=== PATIENT | female | born 1950 | race Caucasian/White ===

== ENCOUNTER 2025-01-21 08:54 | Observation (INO) ==
--- NOTE | 2025-01-04 10:06 | PAT Medication Instructions ---
Medication Instructions Date of Service January 04, 2025 Home Medications L.acidophilus-B.animalis-B.bifidum 25 billion cell-FOS 100 mg capsule (Probiotic Complex) 1 cap PO QAM aspirin 81 mg tablet,delayed release 81 mg PO QAM diwazeh-vveevvpfu-zrnv 333 mg-133 mg-5 mg tablet 1 tab PO DAILY chlorthalidone 50 mg tablet 50 mg PO QAM cholecalciferol (vitamin D3) 125 mcg (5,000 unit) tablet (Vitamin D3) 125 mcg PO DAILY cyanocobalamin (vitamin B-12) 5,000 mcg capsule 10,000 mcg PO DAILY ferrous sulfate 325 mg (65 mg iron) tablet 325 mg PO QAM folic acid 800 mcg tablet 0.8 mg PO DAILY levothyroxine 88 mcg tablet 88 mcg PO QAM lisinopril 10 mg tablet 10 mg PO QAM methotrexate sodium 2.5 mg tablet 10 mg PO UD omega 3-xxu-jvq-fish oil 900 mg-1,400 mg capsule,delayed release 1 cap PO UD potassium chloride 8 mEq tablet,extended release 8 meq PO QAM STOP 7 days before surgery methotrexate sodium 2.5 mg tablet 10 mg PO UD ASK your prescriber and surgeon aspirin 81 mg tablet,delayed release 81 mg PO QAM STOP taking 2 weeks before surgery (or as soon as possible if surgery is within 2 weeks) omega 9-ahh-huu-fish oil 900 mg-1,400 mg capsule,delayed release 1 cap PO UD DO NOT take the morning of surgery L.acidophilus-B.animalis-B.bifidum 25 billion cell-FOS 100 mg capsule (Probiotic Complex) 1 cap PO QAM jrykjke-tjhgarpjy-zmvs 333 mg-133 mg-5 mg tablet 1 tab PO DAILY chlorthalidone 50 mg tablet 50 mg PO QAM cholecalciferol (vitamin D3) 125 mcg (5,000 unit) tablet (Vitamin D3) 125 mcg PO DAILY cyanocobalamin (vitamin B-12) 5,000 mcg capsule 10,000 mcg PO DAILY ferrous sulfate 325 mg (65 mg iron) tablet 325 mg PO QAM folic acid 800 mcg tablet 0.8 mg PO DAILY lisinopril 10 mg tablet 10 mg PO QAM potassium chloride 8 mEq tablet,extended release 8 meq PO QAM Take morning of surgery With a small sip of water, OTHERWISE NOTHING TO EAT OR DRINK AFTER MIDNIGHT: levothyroxine 88 mcg tablet 88 mcg PO QAM Other Notes If you have any questions please call us at [phone] or [phone] or [phone] or [phone]
--- NOTE | 2025-01-08 13:16 | Anesthesiology Consultation ---
Date of Service January 08, 2025 Assessment & Plan (1) Encounter for pre-operative examination: - awaiting surgeon ordered medical clearance, [facility], Markos TREVIÑO 01/13. Chart Review Chart Review: Pending: Refer to Additional Notes / Consult section and Patient seen in Pre Admission Testing Teaching & Discussion Pre-Anesthesia Teaching/Discussion Notes: Instructed NPO after midnight before surgery, except medications with 15 cc of water. Medication instructions provided according to the PAT guidelines. History Surgery Operation Date: 01/21/25 07:45 Proposed Procedures p L3-S1 Decompression and Fusion - Yash Lennon, Height/Weight Height: 5 ft 3.5 in Weight: 86.3 kg Allergies Allergy/AdvReac Type Severity Reaction Status Date / Time No Known Allergies Allergy Verified 01/04/25 09:30 Medications Home Medications Medication Instructions Recorded Confirmed Last Taken L.acidophilus-B.animalis-B.bifidum 1 cap PO QAM 01/04/25 01/04/25 Unknown 25 billion cell-FOS 100 mg capsule (Probiotic Complex) aspirin 81 mg tablet,delayed 81 mg PO QAM 01/04/25 01/04/25 Unknown release kbumhzl-bwnreyrgu-gsko 333 mg-133 1 tab PO DAILY 01/04/25 01/04/25 Unknown mg-5 mg tablet chlorthalidone 50 mg tablet 50 mg PO QAM 01/04/25 01/04/25 Unknown cholecalciferol (vitamin D3) 125 125 mcg PO DAILY 01/04/25 01/04/25 Unknown mcg (5,000 unit) tablet (Vitamin D3) cyanocobalamin (vitamin B-12) 10,000 mcg PO DAILY 01/04/25 01/04/25 Unknown 5,000 mcg capsule ferrous sulfate 325 mg (65 mg 325 mg PO QAM 01/04/25 01/04/25 Unknown iron) tablet folic acid 800 mcg tablet 0.8 mg PO DAILY 01/04/25 01/04/25 Unknown levothyroxine 88 mcg tablet 88 mcg PO QAM 01/04/25 01/04/25 Unknown lisinopril 10 mg tablet 10 mg PO QAM 01/04/25 01/04/25 Unknown methotrexate sodium 2.5 mg tablet 10 mg PO UD 01/04/25 01/04/25 Unknown omega 4-vrl-mfo-fish oil 900 1 cap PO UD 01/04/25 01/04/25 Unknown mg-1,400 mg capsule,delayed release potassium chloride 8 mEq 8 meq PO QAM 01/04/25 01/04/25 Unknown tablet,extended release Past Medical History Medical History (Updated 01/08/25 @ 13:16 by Ayleen Crook PA-C) History of COVID-19 (~2020) ER evaluation (denies hospitalization)-symptoms resolved Hyperlipidemia Hypertension controlled, stable per pt Hypothyroidism Rheumatoid arthritis Taking MTX Patient denies h/o stroke, seizures, heart attack, heart failure, DM, blood clots/DVTs or blood transfusions. Exercise / Class Metabolic Activity III < 4 Walking/Shop/Light housework (ambulates with cane, denies chest discomfort or shortness of breath with usual activities) Past Family History Family History Mother Cancer unknown type Past Surgical History Surgical History History of anesthesia reaction Awareness during knee replacement and "talked to anesthesiologist" History of bilateral tubal ligation History of tooth extraction History of total knee replacement Left Hx of external ear surgery Right, cancer area removed Past Anesthesia History No Family Hx of Anesthesia Complications and Other (awareness with knee replacement) History of PONV No Hx of PONV and No Hx of Motion Sickness Social History Smoking Status: Never smoker Do You Dip or Chew Tobacco: No Hx Alcohol Use: Yes Alcohol type: wine alcohol intake frequency: holidays/special occasions only Hx Substance Use: No substance use type: does not use Review of Systems Patient denies chest pain, shortness of breath, dyspnea on exertion, snoring, witnessed apneas, reflux, fever, chills, cough, wheezing, or palpitations. Physical Exam Vital Signs Vitals BP 132/78 P 77 TEMP 98.2 SP02 97% on RA RESP 18 Physical Patient resting comfortably in chair in no acute distress, alert and oriented, responding appropriately throughout visit Full cervical extension range of motion without pain TMD 3.5 finger breadths Mallampati Score 2 Dentition: edentulous, full upper and lower dentures Lungs: normal respiratory effort. Good air movement, clear throughout to auscultation, no adventitious breath sounds Cardiac: regular rate and rhythm, no murmurs noted Carotid arteries: negative bruit bilat Lab Results Anesthesia Preop Results Results Anesthesia Widget: WBC 9.99 K/ul (4.8-10.8) 01/08/25 Hgb 13.3 g/dl (12.0-16.0) 01/08/25 Hct 38.2 % (37.0-47.0) 01/08/25 Plt 246 K/uL (130-400) 01/08/25 Na 136 mmol/L (136-145) 01/08/25 K 3.8 mmol/L (3.5-5.1) 01/08/25 Cl 101 mmol/L (98-107) 01/08/25 CO2 28 mmol/L (21-32) 01/08/25 BUN 21 mg/dl (6-23) 01/08/25 Creat 1.29 mg/dl (0.6-1.2) H 01/08/25 Glucose Level 94 mg/dl (70-99(Fasting)) 01/08/25 PT 11.3 Seconds (9.0-12.0) 01/08/25 PTT 29 Seconds (21-31) 01/08/25 INR 1.0 (0.9-1.1) 01/08/25 Blood Type O Positive 01/08/25 Antibody Screen NEGATIVE 01/08/25 Testing Electrocardiogram Date: 01/08/25 NSR, rate 74 bpm Nonspecific T wave abnormality Chest X-Ray Date: 01/08/25 No active cardiopulmonary disease. Cervical Spine Date: 01/08/25 1. Straightening of the cervical spine likely due to muscle spasm. 2. Moderate cervical spondylosis. 3. No evidence of fracture or dislocation.
[2025-01-21] MEDS: CeleBREX 200 MG CAP PO SCH (09:27)
[2025-01-21] MEDS: ACETAMINOPHEN 500 MG TAB PO SCH (09:27)
[2025-01-21] MEDS: LR 15ML/HR IV SCH (09:27)
[2025-01-21] MEDS: LR 60ML/HR IV SCH (09:28)
[2025-01-21] MEDS: GABAPENTIN 300 MG CAP PO SCH (09:28)
[2025-01-21] MEDS ORDERED: LIDOCAINE 2% 2 ML VIAL/AMP(20MG/ML) INFIL ONE (10:36)
[2025-01-21] MEDS ORDERED: NEOSTIGMINE METHYLSULFATE 1 MG/ML 10ML VIAL ONE (10:36)
[2025-01-21] MEDS ORDERED: DEXAMETHASONE SOD INJ 4 MG/ML VIAL ONE (10:36)
[2025-01-21] MEDS ORDERED: PROPOFOL IV EMULSION 10 MG/ML 20 ML VIAL IV ONE (10:36)
[2025-01-21] MEDS ORDERED: GLYCOPYRROLATE 0.2 MG/ML VIAL ONE (10:36)
[2025-01-21] MEDS ORDERED: ROCURONIUM BROMIDE 10 MG/ML 5 ML VIAL IV ONE (10:36)
[2025-01-21] MEDS ORDERED: ONDANSETRON INJ 2 MG/ML 2 ML VIAL ONE (10:36)
[2025-01-21] MEDS ORDERED: MIDAZOLAM HCL 1 MG/ML 2ML VIAL ONE (10:37)
[2025-01-21] MEDS ORDERED: HYDROmorphone INJ 1 MG/ML SYRINGE IV PRN (10:47)
[2025-01-21] MEDS ORDERED: ATROPINE SULFATE 0.1 MG/ML 10ML SYR IV PRN (10:47)
[2025-01-21] MEDS ORDERED: ONDANSETRON INJ 2 MG/ML 2 ML VIAL IV PRN (10:47)
[2025-01-21] MEDS ORDERED: PROMETHAZINE HCL 6.25 MG in SODIUM CHLORIDE 0.9% 50 ML IV PRN (10:47)
[2025-01-21] MEDS ORDERED: HYDROmorphone INJ 2 MG/ML SYR/VIAL ONE (11:24)
--- NOTE | 2025-01-21 11:39 | History & Physical Bridge Note ---
Date of Service January 21, 2025 History & Physical Bridge Note I have examined the patient, reviewed the History & Physical and in the interval since the performance of the History & Physical I have noted the following changes of clinical significance: no changes noted
--- NOTE | 2025-01-21 11:40 | History & Physical Report ---
Date of Service January 21, 2025 Assessment & Plan (1) Multilevel lumbosacral spondylosis with radiculopathy: Plan: Decompression and fusion L3-S1 History of Present Illness Chief Complaint: Back and bilateral leg pain Primary Care Provider: Vernon Hernandez MD This is a 74-year-old female presents chronic persistent back and leg pain after failing course of nonoperative care is here for surgical intervention. Allergies Allergy/AdvReac Type Severity Reaction Status Date / Time No Known Allergies Allergy Verified 01/04/25 09:30 Home Medications Medication Instructions Recorded Confirmed Type L.acidophilus-B.animalis-B.bifidum 1 cap PO QAM 01/04/25 01/21/25 History 25 billion cell-FOS 100 mg capsule (Probiotic Complex) aspirin 81 mg tablet,delayed 81 mg PO QAM 01/04/25 01/21/25 History release kngeffe-poaviqvcg-kicr 333 mg-133 1 tab PO DAILY 01/04/25 01/21/25 History mg-5 mg tablet chlorthalidone 50 mg tablet 50 mg PO QAM 01/04/25 01/21/25 History cholecalciferol (vitamin D3) 125 125 mcg PO DAILY 01/04/25 01/21/25 History mcg (5,000 unit) tablet (Vitamin D3) cyanocobalamin (vitamin B-12) 10,000 mcg PO DAILY 01/04/25 01/21/25 History 5,000 mcg capsule ferrous sulfate 325 mg (65 mg 325 mg PO QAM 01/04/25 01/21/25 History iron) tablet folic acid 800 mcg tablet 0.8 mg PO DAILY 01/04/25 01/21/25 History levothyroxine 88 mcg tablet 88 mcg PO QAM 01/04/25 01/21/25 History lisinopril 10 mg tablet 10 mg PO QAM 01/04/25 01/21/25 History methotrexate sodium 2.5 mg tablet 10 mg PO UD 01/04/25 01/21/25 History omega 9-smf-mnb-fish oil 900 1 cap PO UD 01/04/25 01/21/25 History mg-1,400 mg capsule,delayed release potassium chloride 8 mEq 8 meq PO QAM 01/04/25 01/21/25 History tablet,extended release Past Med/Surg History Problem List (Updated 01/21/25 @ 11:40 by Yash Lennon DO) Multilevel lumbosacral spondylosis with radiculopathy Encounter for pre-operative examination Medical History (Updated 01/21/25 @ 11:40 by Yash Lennon DO) Rheumatoid arthritis Taking MTX Hypothyroidism Hypertension controlled, stable per pt Hyperlipidemia History of COVID-19 (~2020) ER evaluation (denies hospitalization)-symptoms resolved Surgical History History of anesthesia reaction Awareness during knee replacement and "talked to anesthesiologist" History of bilateral tubal ligation History of total knee replacement Left History of tooth extraction Hx of external ear surgery Right, cancer area removed Family History Mother Cancer unknown type Social History Smoking Status: Never smoker Second Hand Exposure: No; Do You Dip or Chew Tobacco: No; Tobacco Cessation Education Requested by Patient: No Hx Alcohol Use: Yes Alcohol type: wine Hx Substance Use: No Preferred Language: Mongolian Communication Ability: Effective Rag Collector Required: No Beliefs That Will Affect Care: None Current Living Situation: Family Other Information That Helps Us Care for You: No Feels Safe at Home: Yes Safety Concerns: Feels Safe At This Time Assistive Devices: Cane, Denture - Upper, Denture - Lower and Glasses Physical Exam Physical Exam: Patient is alert and oriented Heart regular rhythm lungs clear Results & Data Results & Data Vital Signs (Past 12 Hours) Vital Signs Temp Pulse Resp BP Pulse Ox O2 Del Method 01/21/25 09:28 36.7 C 74 16 147/74 H 95 Room Air
[2025-01-21] MEDS: BUPIVACAINE/EPINEPHRINE 0.25% 1:200,000 30 ML VIAL ONE (12:30)
[2025-01-21] MEDS: SURGICEL ABSORB HEMOSTAT 2IN X 14IN TOP ONE (14:06)
[2025-01-21] MEDS: FLOSEAL HEMOSTATIC MATRIX 10ML TOP ONE (14:12)
--- NOTE | 2025-01-21 14:32 | Operative Report ---
Post Operative Report Pre & Post Diagnosis Operation Date: 01/21/25 10:25 Pre-Op Diagnosis: #1 multilevel lumbosacral spondylosis with radiculopathy #2 lumbar spondylolisthesis Post-Op Diagnosis: Same I identified the patient and participated in the time-out.: Yes Procedure Operation Date: 01/21/25 10:25 Actual Procedures #1 lumbar decompression bilateral medial facetectomies and foraminotomies L3-L4, L4-5 and L5-S1. #2 posterior spinal fusion L3-S1. #3 placed posterior segmental instrumentation L3-S1 using camber. #4 interbody fusion L4-L5 L5-S1. #5 placement Spira 11 x 26 mm at L4-L5 and 12 x 26 mm x 2 at L5-S1. #6 placement locally harvested morselized autograft posterior gutters. #7 placement of Proteus combined with Koros in the posterior lateral gutters and os design interbody space. #8 application of versa wrap of the exposed dura. Surgeon Yash Lennon, DO Utility Assembler Tasneem Eastman Estimated Blood Loss 650 Findings See Below The patient is 5 foot 3 weighing over 85 kg with a BMI in excess of 32. Patient's body mass did contribute to significant technical difficulty with positioning exposure and the procedure itself and at least 50% increased operative time. Specimens None Indications This is a 74-year-old female who presents by much diagnosis after failing course of nonoperative care she is here for surgical invention. Description of Procedure Patient is met with identified informed consent obtained. Patient was then ta liz to the operative suite underwent and patient placed in a prone position on the Brooks table on top of the Eric frame. All bony promises well-padded eyes inspected to ensure no external pressure placed upon them. This point lumbar spine was prepped and draped in sterile fashion. Sharp dissection with the assistance of Bovie cautery performed down to and exposing the lamina and transverse processes L3-L4-L5 and the sacral ala bilaterally. From caudal to cephalad fashion complete laminectomy of L5 L4 and L3 was performed including bilateral medial facetectomies and foraminotomies addressing severe neural compression at each level. Pedicle screws were then placed in L3-L4-L5 and S1 levels bilaterally with assistance of fluoroscopy and the purposes rods contoured and placed. By way of transfer and approach and a left a discectomy of L5-S1 was performed endplates corrected to subcortical bony bone and a 12 x 26 mm Spira cage tapped into position. Then proceeded to the right tra nsforaminal region at L5-S1. Again discectomy performed. Endplates guided to subcortical bleeding bone and a second 12 x 26 mm Spira cage tapped in position. Then proceeded L4-L5 by way transforaminal approach on the right a complete discectomy was performed. Endplates guided to subcortically bone and 11 x 26 mm spiral cage tapped into position. Please note all cages were packed with os design bone graft. Rods were then locked into position bilaterally. The transverse processes of L3 L4-5 and the sacral ala burred to subcortical bleeding bone. Proteus combined with Koros and local autograft placed in the posterolateral gutters. Versa wrap placed of exposed dura. 15 round SIRISHA drain inserted. The incision was then closed with 1 Vicryl the fascia 2-0 Vicryl subcutaneously and 4 Monocryl for final skin closure. Steri-Strips sterile dressing placed. Patient waken taken the PACU stable condition. Please note Tasneem Eastman was present at the entire procedure and on the patient positioning complex portion of the surgery and final skin closure. Im ordering 10 grams of Collagen Powder ([facility] A6010 Primary Dressing) and 10 bordered super absorbent ([facility] A6196 Secondary Dressing) to treat an incision wound that was caused by a spine procedure. The incision is approximately 2 cm(W) x 2 cm(L) down to the spinal column and epidural space 2 cm (D) in size and is a full thickness wound showing no signs of infection. Collagen comes in 1 gram packets so 10 packets were ordered. Given the size of the wound, with moderate exudate I chose to order a 10 day supply. The patient will be provided instructions for proper application of the collagen wound kit. The patient will be asked to apply the collagen powder daily and then cover it with sterile dressings dispensed. Collagen was selected as I expect the collagen to attract monocytes and fibroblasts, act as a sacrificial substrate for MMPs, and ultimately proved a matrix for tissue and vessel growth. The collagen will act as a primary dressing in this scenario. It is medically necessary for proper healing of these wounds to improve bioavailability and contact with each wound surface, this is also to help prevent infection of wounds and promote healing ultimately leading to a better healing outcome and limit the risk of infection. I attest to the content of the Intraoperative Record and any orders documented therein. Any exceptions are noted below.
[2025-01-21] MEDS: ceFAZolin 330 MG/ML 1 GM VIAL ONE (14:35)
--- NOTE | 2025-01-21 14:50 | Fluoroscopy Report ---
FL lumbar spine 2-3V CLINICAL HISTORY: L3-S1 D F COMPARISON STUDY: None FLUOROSCOPY TIME: 26 seconds FLUOROSCOPY IMAGES: 3 EXPOSURE DOSE: 22 mGy FINDINGS: Fluoroscopy was provided for lower lumbar metallic fusion. IMPRESSION: Intraoperative fluoroscopy. ACT 112: Negative or not required by law. Electronically signed by: Ajit Callejas M.D. 01/21/2025 2:49 PM
[2025-01-21] MEDS ORDERED: ACETAMINOPHEN 1,000 MG/100 ML VIAL IV PRN (16:02)
[2025-01-21] MEDS ORDERED: diphenhydrAMINE Capsule 25 MG CAP PO PRN (16:02)
[2025-01-21] MEDS ORDERED: DO NOT ADMINISTER FLU VACCINE PRN (16:02)
[2025-01-21] MEDS ORDERED: DO NOT ADMINISTER PNEUMOCOCCAL VACCINE PRN (16:02)
[2025-01-21] MEDS ORDERED: ALUMINUM/MAGNESIUM SUSP 30 ML UDC PO PRN (16:02)
[2025-01-21] MEDS ORDERED: FAMOTIDINE 20 MG TAB PO PRN (16:02)
[2025-01-21] MEDS ORDERED: SOD PHOSPHATE/SOD BIPHOSPHATE ENEMA 132 ML BTL PR PRN (16:02)
[2025-01-21] MEDS ORDERED: NALOXONE HCL 0.4 MG/1 ML VIAL/CARP IV PRN (16:02)
[2025-01-21] MEDS ORDERED: LORazepam 0.5 MG TAB PO PRN (16:02)
[2025-01-21] MEDS ORDERED: ONDANSETRON 4 MG OD TAB PO PRN (16:02)
[2025-01-21] MEDS ORDERED: MAGNESIUM HYDROXIDE SUSP 30 ML UDC PO PRN (16:02)
[2025-01-21] MEDS ORDERED: PROMETHAZINE 12.5 MG/50.5 ML BAG IV PRN (16:02)
[2025-01-21] MEDS ORDERED: METOCLOPRAMIDE HCL INJ 5 MG/ML 2 ML VIAL IV PRN (16:02)
--- NOTE | 2025-01-21 16:32 | Anesthesiology Progress Note ---
Date of Service January 21, 2025 Anesthesia Post Procedure Vital Signs Vital Signs: Temp Pulse Pulse Resp BP Pulse Ox O2 Del Method 01/21/25 15:55 68 12 130/55 L 97 Nasal Cannula 01/21/25 15:40 76 17 135/62 97 Nasal Cannula 01/21/25 15:30 97.5 F L 69 14 131/59 L 97 Nasal Cannula 01/21/25 15:20 67 19 128/63 98 Nasal Cannula 01/21/25 15:10 69 12 124/63 98 Nasal Cannula 01/21/25 15:00 74 18 121/62 92 Nasal Cannula 01/21/25 14:50 69 14 110/64 95 Oxymask 01/21/25 14:40 97.5 F L 90 16 117/60 97 Oxymask 01/21/25 09:28 98.1 F 74 16 147/74 H 95 Room Air O2 Flow Rate 01/21/25 15:55 2 01/21/25 15:40 2 01/21/25 15:30 2 01/21/25 15:20 2 01/21/25 15:10 2 01/21/25 15:00 2 01/21/25 14:50 5 01/21/25 14:40 5 01/21/25 09:28 Pain Intensity Back: Pain Intensity: 4 Transfer of Care Handoff Completed per policy Notes Mental Status: alert / awake / arousable and participated in evaluation Patient Amnestic to Procedure: Yes Nausea / Vomiting: adequately controlled Pain: adequately controlled Airway Patency, RR, SpO2: stable & adequate BP & HR: stable & adequate Hydration State: stable & adequate Anesthetic Complications: no major complications apparent and Pt Satisfied with anesthetic care
--- NOTE | 2025-01-21 16:50 | Hospitalist Consultation ---
Date of Consultation January 21, 2025 Assessment & Plan (1) Multilevel lumbosacral spondylosis with radiculopathy: (2) S/P spinal surgery: Patient is a 74-year-old female with past medical history significant for rheumatoid arthritis, hypothyroidism, TONE, HTN and HLD who is being seen in consultation for routine postoperative medical management after undergoing elective L3-S1 decompression and fusion performed by Dr. Lennon earlier today after failing nonoperative care for treatment of multilevel lumbosacral spondylosis with radiculopathy. POD #0 s/p lumbar decompression bilateral medial facetectomies and foraminotomies L3-L4/L4-5/L5-S1, posterior spinal fusion L3-S1, placed posterior segmental instrumentation L3-S1 using camber, interbody fusion L4-L5/L5-S1, placement Spira 11 x 26 mm at L4-L5 and 12 x 26 mm x 2 at L5-S1, placement locally harvested morselized autograft posterior gutters, placement of Proteus combined with Koros in the posterior lateral gutters and os design interbody space and application of versa wrap of the exposed dura with Dr. Lennon EBL: 650cc & preop Hgb = 13.3 as of 01/08/25 Per primary service for pain control, wound care, anticoagulation and activities Continue incentive spirometry, PT/OT when appropriate as per primary service Monitor postop H/H for acute blood loss anemia and transfuse blood products PRN Continue Fe supplementation given h/o TONE Continue postop IV Ancef as per primary service (9 bags ordered) (3) Hypertension: Postop BP on softer side Will hold lisinopril and chlorthalidone for now --> resume as able, routine BP monitoring (4) Hyperlipidemia: Continue ASA (5) Hypothyroidism: Continue levothyroxine (6) Rheumatoid arthritis: Methotrexate placed on hold by primary service DVT Prophylaxis: As per primary service PCP: Vernon Hernandez MD [[facility]] Disposition: Routine DC planning as per primary service Patient seen in collaboration with Dr. Hutson. Please see addendum. I spent a total of 36 minutes coordinating, documenting, and providing care for this patient excluding time spent in the performance of separately billed services or time spent by another provider/QHP. This included personally reviewing all current laboratories and imaging studies, medical reconciliation, outpatient chart review and discussion with specialists. This chart was completed in part utilizing Speech Voice Recognition Software. Grammatical errors, random word insertions, pronoun errors, and incomplete sentences are an occasional consequence of this system due to software limitations, ambient noise, and hardware issues. Any formal questions or concerns about the content, text, or information contained within the body of this dictation should be directly addressed to the provider for clarification. Supervising Physician Co-Signing Physician Notes Attending addendum: The patient was seen and examined in medical floor in presence of the family members She is status post multilevel lumbosacral spondylosis with radiculopathy and is status post spinal surgery on 01/21/2025 She has been complaining of some back pain but radiate no radiation Denies any other significant symptoms On examination Lying in bed without any acute distress Remains hemodynamically stable with afebrile and requiring 2 L to maintain saturation Chestdecreased breath sounds bilaterally but no crackles and no wheezing HeartS1-S2, regular Abdomenbenign Extremitiesno edema Her labs prior to the surgery including CBC and PRP noted and a chest x-ray and EKG noted too She remains medically stable following spinal surgery as above Her other significant medical conditions remained stable and managed accordingly Will check her blood counts tomorrow Agree with assessment plan as outlined above by Jennie Miles PA-C and take the full responsibility of care in the hospita Dr Fabrizio Azar History of Present Illness Reason for Consultation: Routine postoperative medical management Requesting Physician: Yash Lennon DO Attending Physician: Yash Lennon DO History of Present Illness Patient is a 74-year-old female with past medical history significant for rheumatoid arthritis, hypothyroidism, TONE, HTN and HLD who is being seen in consultation for routine postoperative medical management after undergoing elective L3-S1 decompression and fusion performed by Dr. Lennon earlier today after failing nonoperative care for treatment of multilevel lumbosacral spondylosis with radiculopathy. History obtained from the patient and associated chart review. Endorses some mild back discomfort postoperatively but otherwise feeling well. Denies any SOB or chest pain. Tolerating sips of water without issue. Eager to eat later on. Denies any abdominal pain or N/V. Passing gas. Currently on 2L NC but slowly weaning off. Allergies Allergy/AdvReac Type Severity Reaction Status Date / Time No Known Allergies Allergy Verified 01/04/25 09:30 Home Medications Medication Instructions Recorded Confirmed Type L.acidophilus-B.animalis-B.bifidum 1 cap PO QAM 01/04/25 01/21/25 History 25 billion cell-FOS 100 mg capsule (Probiotic Complex) aspirin 81 mg tablet,delayed 81 mg PO QAM 01/04/25 01/21/25 History release wfodfcr-jkhdbhzmg-ulkf 333 mg-133 1 tab PO DAILY 01/04/25 01/21/25 History mg-5 mg tablet chlorthalidone 50 mg tablet 50 mg PO QAM 01/04/25 01/21/25 History cholecalciferol (vitamin D3) 125 125 mcg PO DAILY 01/04/25 01/21/25 History mcg (5,000 unit) tablet (Vitamin D3) cyanocobalamin (vitamin B-12) 10,000 mcg PO DAILY 01/04/25 01/21/25 History 5,000 mcg capsule ferrous sulfate 325 mg (65 mg 325 mg PO QAM 01/04/25 01/21/25 History iron) tablet folic acid 800 mcg tablet 0.8 mg PO DAILY 01/04/25 01/21/25 History levothyroxine 88 mcg tablet 88 mcg PO QAM 01/04/25 01/21/25 History lisinopril 10 mg tablet 10 mg PO QAM 01/04/25 01/21/25 History methotrexate sodium 2.5 mg tablet 10 mg PO UD 01/04/25 01/21/25 History omega 4-zsm-ree-fish oil 900 1 cap PO UD 01/04/25 01/21/25 History mg-1,400 mg capsule,delayed release potassium chloride 8 mEq 8 meq PO QAM 01/04/25 01/21/25 History tablet,extended release Patient History Medical History Rheumatoid arthritis Taking MTX Hypothyroidism Hypertension controlled, stable per pt Hyperlipidemia History of COVID-19 (~2020) ER evaluation (denies hospitalization)-symptoms resolved Surgical History History of anesthesia reaction Awareness during knee replacement and "talked to anesthesiologist" History of bilateral tubal ligation History of total knee replacement Left History of tooth extraction Hx of external ear surgery Right, cancer area removed Family History Mother Cancer unknown type Social History Smoking Status: Never smoker Second Hand Exposure: No; Do You Dip or Chew Tobacco: No; Tobacco Cessation Education Requested by Patient: No Hx Alcohol Use: Yes Alcohol type: wine Hx Substance Use: No Preferred Language: Khmer Communication Ability: Effective Pump House Technician Required: No Beliefs That Will Affect Care: None Current Living Situation: Family Other Information That Helps Us Care for You: No Feels Safe at Home: Yes Safety Concerns: Feels Safe At This Time Assistive Devices: Cane, Denture - Upper, Denture - Lower and Glasses Review of Systems Review of Systems: At least ten systems reviewed and negative, except as noted in the HPI. Physical Exam Physical Exam: General: WD/WN, NAD, laying down in bed, A&Ox3, pleasant, friend at bedside HEENT: Normocephalic, atraumatic, oropharynx normal Respiratory: Normal respiratory effort, CTAB, on 2L NC Cardiovascular: RRR, normal peripheral pulses, no BLE edema Abdomen/GI: Normal bowel sounds, soft, nontender to palpation in all quadrants Extremities/MSK: No cyanosis or clubbing, moves all extremities, surgical dressing on back with minimal seepage, SIRISHA drain x 1 with serosanguineous output Neurologic: No overt focal deficits, CN's II-XI not formally tested but appear grossly intact bilaterally Results & Data Results & Data Vital Signs (Past 12 Hours) Vital Signs Temp Pulse Pulse Resp BP Pulse Ox O2 Del Method 01/21/25 16:37 Room Air 01/21/25 16:32 36.5 C 70 16 120/62 97 Nasal Cannula 01/21/25 16:02 36.5 C 74 16 128/65 Nasal Cannula 01/21/25 15:55 68 12 130/55 L 97 Nasal Cannula 01/21/25 15:40 76 17 135/62 97 Nasal Cannula 01/21/25 15:30 36.4 C L 69 14 131/59 L 97 Nasal Cannula 01/21/25 15:20 67 19 128/63 98 Nasal Cannula 01/21/25 15:10 69 12 124/63 98 Nasal Cannula 01/21/25 15:00 74 18 121/62 92 Nasal Cannula 01/21/25 14:50 69 14 110/64 95 Oxymask 01/21/25 14:40 36.4 C L 90 16 117/60 97 Oxymask 01/21/25 09:28 36.7 C 74 16 147/74 H 95 Room Air O2 Flow Rate 01/21/25 16:37 2 01/21/25 16:32 2 01/21/25 16:02 2 01/21/25 15:55 2 01/21/25 15:40 2 01/21/25 15:30 2 01/21/25 15:20 2 01/21/25 15:10 2 01/21/25 15:00 2 01/21/25 14:50 5 01/21/25 14:40 5 01/21/25 09:28 Diagnostic Findings Chest X-Ray 01/08/25 07:58 CLINICAL HISTORY: Pre admission testing. COMPARISON: None. TECHNIQUE: XR CHEST PA/Lateral. FINDINGS: Lungs: Both lung drummond are clear with no evidence of nodules, infiltrates or mass noted. Diaphragms: Unremarkable. Pleura: No effusions or pneumothorax are identified. Heart: Heart size and its configuration appear to be within normal limits. Aorta: Unremarkable. Pulmonary arteries: Unremarkable. Hilum: Unremarkable. Osseous structures: Normal mineralization of the visualized bony structures. No acute bony pathology. IMPRESSION: 1. No active cardiopulmonary disease. Electronically signed by Noah Gerard 01-08-2025 2:41 PM Cervical Spine X-Ray 01/08/25 13:23 CLINICAL HISTORY: Pre admission testing. COMPARISON: None. FINDINGS: Alignment and Curvature: Straightening of the cervical spine is noted. Vertebral body heights: None. Intervertebral disc spaces: Reduced disc space is noted at C3-C4, C5-C6 and C6-C7 levels. Degenerative changes: Marginal osteophytes with endplate sclerosis is noted. Fracture: None. Mineralization of the cervical spine bony structures: Normal bone density is noted. Prevertebral and paraspinal soft tissues: Normal. Orthopedic hardware: None. IMPRESSION: 1. Straightening of the cervical spine likely due to muscle spasm. 2. Moderate cervical spondylosis. 3. No evidence of fracture or dislocation. Electronically signed by Noah Gerard 01-09-2025 05:53 AM Lumbar Spine X-Ray 01/21/25 10:25 FL lumbar spine 2-3V CLINICAL HISTORY: L3-S1 D F COMPARISON STUDY: None FLUOROSCOPY TIME: 26 seconds FLUOROSCOPY IMAGES: 3 EXPOSURE DOSE: 22 mGy FINDINGS: Fluoroscopy was provided for lower lumbar metallic fusion. IMPRESSION: Intraoperative fluoroscopy. ACT 112: Negative or not required by law. Electronically signed by: Ajit Callejas M.D. 01/21/2025 2:49 PM (3) Hypertension Hypertension type: unspecified Qualified Code(s): I10 - Essential (primary) hypertension (4) Hyperlipidemia Hyperlipidemia type: unspecified Qualified Code(s): E78.5 - Hyperlipidemia, unspecified (5) Hypothyroidism Hypothyroidism type: unspecified Qualified Code(s): E03.9 - Hypothyroidism, unspecified (6) Rheumatoid arthritis Rheumatoid arthritis location: unspecified site Rheumatoid factor presence: unspecified presence Qualified Code(s): M06.9 - Rheumatoid arthritis, unspecified
[2025-01-21] MEDS: COUGH DROP (SUGAR FREE) LOZ 24 LOZ/1 BOX BUCCAL PRN (16:54)
[2025-01-21] MEDS: ONDANSETRON INJ 2 MG/ML 2 ML VIAL IV PRN (17:44)
[2025-01-21] MEDS: ACETAMINOPHEN 500 MG TAB PO PRN (20:57)
[2025-01-21] MEDS: DOCUSATE SODIUM/SENNA 50/8.6MG TAB PO SCH (20:57)
[2025-01-22] MEDS: POLYETHYLENE (MIRALAX) 17 GM PACK PO SCH (06:09)
[2025-01-22] MEDS: LEVOTHYROXINE SODIUM 88 MCG TABLET PO SCH (06:10)
[2025-01-22] MEDS: FERROUS SULFATE 325 MG TAB PO SCH (07:41)
[2025-01-22] MEDS: FOLIC ACID 400 MCG TAB PO SCH (07:41)
[2025-01-22] MEDS: ASPIRIN 81 MG ECTAB PO SCH (07:41)
[2025-01-22] MEDS: ADVANCED PROBIOTIC 625 MG CAPSULE PO SCH (07:41)
[2025-01-22] MEDS: CYANOCOBALAMIN (B-12) 2,500 MCG TABLET PO SCH (07:42)
[2025-01-22] MEDS: dexAMETHasone 6 MG in SYRINGE 0 ML IV SCH (07:42)
[2025-01-22] MEDS: CHOLECALCIFEROL 125 MCG (5,000 UNITS) TAB PO SCH (07:42)
[2025-01-22] MEDS ORDERED: CHLORTHALIDONE 25 MG TAB PO SCH (09:00)
[2025-01-22] MEDS ORDERED: NON-FORMULARY MEDICATION (Calcium-Magnesium-Zinc 333-133-5 mg Tablet) PO SCH (09:00)
[2025-01-22] MEDS ORDERED: POTASSIUM CHLORIDE 10 MEQ TABCR PO SCH (09:00)
[2025-01-22 10:06] LABS: Hematocrit (blood only) 32.0 % (37.0-47.0); Hemoglobin 10.9 g/dl (12.0-16.0); Immature Granulocytes # (auto) 0.10 K/uL (0.01-0.20); Immature Granulocytes % (auto) 0.5 %; Mean Corpuscular Hemoglobin 32.6 pg (25.0-34.0); Mean Corpuscular Volume 95.8 fL (80.0-100.0); Platelet Count 230 K/uL (130-400); RDW Standard Deviation 43.5 fL (36.4-46.3); Red Blood Count 3.34 M/uL (4.20-5.40); White Blood Count 20.08 K/ul (4.8-10.8)
[2025-01-22 10:21] LABS: Anion Gap 8.0 (3-11); Blood Urea Nitrogen 19.0 mg/dl (6-23); Calcium 8.5 mg/dl (8.6-10.3); Carbon Dioxide 26.0 mmol/L (21-32); Chloride 95.0 mmol/L (98-107); Creatinine Clr Calc Pharmacy 39.5 ml/min; Glucose 148.0 mg/dl (70-99(Fasting)); Potassium 3.9 mmol/L (3.5-5.1); Sodium 129.0 mmol/L (136-145)
--- NOTE | 2025-01-22 11:05 | Orthopedic Progress Note ---
Date of Service January 22, 2025 Assessment & Plan (1) Multilevel lumbosacral spondylosis with radiculopathy: Plan: At this time we will continue physical therapy monitor her SIRISHA output anticipate discharge Saturday or Saturday. Admission and Anticipated Discharge Date Admission Date: January 21, 2025 Subjective Back pain controlled leg pain improved Physical Exam Physical Exam: Patient is up and ambulating the halls with physical therapy. She has excellent posture. She is comfortable. The strength testing. Results & Data Vital Signs (Past 12 Hours) Vital Signs Temp Pulse Pulse Resp BP Pulse Ox O2 Del Method 01/22/25 08:01 36.3 C L 84 18 140/73 97 Room Air 01/22/25 04:00 36.5 C 70 18 125/69 97 Room Air 01/22/25 00:03 36.5 C 65 18 114/66 98 Room Air Queries Orthopedic Spine Obesity: Yes
--- NOTE | 2025-01-22 11:41 | Hospitalist Progress Note ---
Date of Service January 22, 2025 Assessment & Plan (1) Multilevel lumbosacral spondylosis with radiculopathy: (2) S/P spinal surgery: Plan: Patient is a 74-year-old female with past medical history significant for rheumatoid arthritis, hypothyroidism, TONE, HTN and HLD who is being seen in consultation for routine postoperative medical management after undergoing elective L3-S1 decompression and fusion performed by Dr. Lennon earlier today after failing nonoperative care for treatment of multilevel lumbosacral spondylosis with radiculopathy. POD #1 s/p lumbar decompression bilateral medial facetectomies and foraminotomies L3-L4/L4-5/L5-S1, posterior spinal fusion L3-S1, placed posterior segmental instrumentation L3-S1 using camber, interbody fusion L4-L5/L5-S1, placement Spira 11 x 26 mm at L4-L5 and 12 x 26 mm x 2 at L5-S1, placement locally harvested morselized autograft posterior gutters, placement of Proteus combined with Koros in the posterior lateral gutters and os design interbody space and application of versa wrap of the exposed dura with Dr. Lennon Per ortho for pain control, wound care, anticoagulation and activities Continue IV Ancef until SIRISHA drain removed Continue incentive spirometry, PT/OT when appropriate Acute blood loss anemia Monitor H&H 10.9 (pre-op hgb 13.3, EBL 650ml) Asymptomatic, no transfusion indicated (3) Hypertension: Plan: Postop BP on softer side Will hold lisinopril and chlorthalidone for now -> resume as able (4) Leukocytosis: Plan: WBC 20K today (from 9.9K pre-op), in setting of steroids. No suspected infection. Monitor with daily CBC (5) Hyperlipidemia: Plan: Continue ASA (6) Hypothyroidism: Plan: Continue levothyroxine (7) Rheumatoid arthritis: Plan: Methotrexate placed on hold by primary service DVT Prophylaxis: As per primary service PCP: Vernon Hernandez MD [[facility]] Disposition: Routine DC planning as per primary service Care coordinated with Dr. Bailey Addison spent a total of 35 minutes coordinating, documenting, and providing care for this patient excluding time spent in the performance of separately billed services or time spent by another provider/QHP. This included personally reviewing all current laboratories and imaging studies, medical reconciliation, outpatient chart review and discussion with specialists. Admission and Anticipated Discharge Date Admission Date: January 21, 2025 Subjective Seen and examined with PT at bedside. No acute events overnight. Patient with minimal surgical site discomfort, no paresthesias or numbness of lower extremities. No chest pain or shortness of breath. No nausea or vomiting. + post op flatus Review of Systems Review of Systems: At least ten systems reviewed and negative except as noted in the HPI. Physical Exam Physical Exam: Gen: WD/WN, NAD, sitting at side of bed, A&Ox3 HEENT: Normocephalic, atraumatic, mucous membranes moist Lung: Clear to Auscultation bilaterally Heart: Regular rate, regular rhythm Abdomen: Soft, NT, ND +BS x 4 Extremities: Spinal dressing c/d/i, + SIRISHA visualized, no edema Skin: Warm, no rash Results & Data Results & Data Vital Signs (Past 12 Hours) Vital Signs Temp Pulse Pulse Resp BP Pulse Ox O2 Del Method 01/22/25 08:01 36.3 C L 84 18 140/73 97 Room Air 01/22/25 04:00 36.5 C 70 18 125/69 97 Room Air 01/22/25 00:03 36.5 C 65 18 114/66 98 Room Air Laboratory Results Short CBC 01/22/25 Range/Units 09:46 WBC 20.08 H (4.8-10.8) K/ul Hgb 10.9 L (12.0-16.0) g/dl Hct 32.0 L (37.0-47.0) % Plt Count 230 (130-400) K/uL BMP 01/22/25 09:46 Sodium 129 L Potassium 3.9 Chloride 95 L Carbon Dioxide 26 BUN 19 Creatinine 1.31 H Glucose 148 H Calcium 8.5 L Diagnostic Findings Chest X-Ray 01/08/25 07:58 CLINICAL HISTORY: Pre admission testing. COMPARISON: None. TECHNIQUE: XR CHEST PA/Lateral. FINDINGS: Lungs: Both lung drummond are clear with no evidence of nodules, infiltrates or mass noted. Diaphragms: Unremarkable. Pleura: No effusions or pneumothorax are identified. Heart: Heart size and its configuration appear to be within normal limits. Aorta: Unremarkable. Pulmonary arteries: Unremarkable. Hilum: Unremarkable. Osseous structures: Normal mineralization of the visualized bony structures. No acute bony pathology. IMPRESSION: 1. No active cardiopulmonary disease. Electronically signed by Noah Gerard 01-08-2025 2:41 PM Cervical Spine X-Ray 01/08/25 13:23 CLINICAL HISTORY: Pre admission testing. COMPARISON: None. FINDINGS: Alignment and Curvature: Straightening of the cervical spine is noted. Vertebral body heights: None. Intervertebral disc spaces: Reduced disc space is noted at C3-C4, C5-C6 and C6-C7 levels. Degenerative changes: Marginal osteophytes with endplate sclerosis is noted. Fracture: None. Mineralization of the cervical spine bony structures: Normal bone density is noted. Prevertebral and paraspinal soft tissues: Normal. Orthopedic hardware: None. IMPRESSION: 1. Straightening of the cervical spine likely due to muscle spasm. 2. Moderate cervical spondylosis. 3. No evidence of fracture or dislocation. Electronically signed by Noah Gerard 01-09-2025 05:53 AM Lumbar Spine X-Ray 01/21/25 10:25 FL lumbar spine 2-3V CLINICAL HISTORY: L3-S1 D F COMPARISON STUDY: None FLUOROSCOPY TIME: 26 seconds FLUOROSCOPY IMAGES: 3 EXPOSURE DOSE: 22 mGy FINDINGS: Fluoroscopy was provided for lower lumbar metallic fusion. IMPRESSION: Intraoperative fluoroscopy. ACT 112: Negative or not required by law. Electronically signed by: Ajit Callejas M.D. 01/21/2025 2:49 PM (3) Hypertension Hypertension type: unspecified Qualified Code(s): I10 - Essential (primary) hypertension (5) Hyperlipidemia Hyperlipidemia type: unspecified Qualified Code(s): E78.5 - Hyperlipidemia, unspecified (6) Hypothyroidism Hypothyroidism type: unspecified Qualified Code(s): E03.9 - Hypothyroidism, unspecified (7) Rheumatoid arthritis Rheumatoid arthritis location: unspecified site Rheumatoid factor presence: unspecified presence Qualified Code(s): M06.9 - Rheumatoid arthritis, unspecified
[2025-01-22 15:29] LABS: Anion Gap 8.0 (3-11); Blood Urea Nitrogen 21.0 mg/dl (6-23); Calcium 8.5 mg/dl (8.6-10.3); Carbon Dioxide 26.0 mmol/L (21-32); Chloride 92.0 mmol/L (98-107); Creatinine Clr Calc Pharmacy 34.5 ml/min; Glucose 193.0 mg/dl (70-99(Fasting)); Potassium 4.4 mmol/L (3.5-5.1); Sodium 126.0 mmol/L (136-145)
[2025-01-22] MEDS: SODIUM CHLORIDE 0.9% 1,000 ML IV SCH (16:48)
[2025-01-22] MEDS: HYDROmorphone INJ 0.5 MG/0.5 ML SYR IV PRN (19:40)
[2025-01-23] MEDS: HYDROmorphone INJ 1 MG/ML SYRINGE IV PRN (04:00)
[2025-01-23 06:48] LABS: Hematocrit (blood only) 28.0 % (37.0-47.0); Hemoglobin 9.6 g/dl (12.0-16.0); Mean Corpuscular Hemoglobin 32.4 pg (25.0-34.0); Mean Corpuscular Volume 94.6 fL (80.0-100.0); Platelet Count 168 K/uL (130-400); RDW Standard Deviation 44.2 fL (36.4-46.3); Red Blood Count 2.96 M/uL (4.20-5.40); White Blood Count 13.27 K/ul (4.8-10.8)
--- NOTE | 2025-01-23 07:22 | Hospitalist Progress Note ---
Date of Service January 23, 2025 Assessment & Plan (1) Multilevel lumbosacral spondylosis with radiculopathy: (2) S/P spinal surgery: Plan: Patient is a 74-year-old female with past medical history significant for rheumatoid arthritis, hypothyroidism, TONE, HTN and HLD who is being seen in consultation for routine postoperative medical management after undergoing elective L3-S1 decompression and fusion performed by Dr. Lennon earlier today after failing nonoperative care for treatment of multilevel lumbosacral spondylosis with radiculopathy. POD #2 s/p lumbar decompression and fusion L3-S1 by Dr. Lennon Per ortho for pain control, wound care, anticoagulation and activities Continue IV Ancef until SIRISHA drain removed Continue incentive spirometry, PT/OT when appropriate Acute blood loss anemia Hgb: 9.6, was 10.9 (pre-op hgb 13.3, EBL 650ml) Asymptomatic, no transfusion indicated Monitor H&H Hyponatremia Na: 130. Was 129, 126 yesterday. (Was 136 pre-op) S/P 1L NSS yesterday Continue to hold chlorthalidone. Chlorthalidone may need to be held upon discharge AM labs with serum osmolality, urine osmolality, urine sodium, TSH CKD III Cr: 1.26. (pre-op Cr: 1.29) Monitor renal functions (3) Hypertension: Plan: BP stable Home lisinopril and chlorthalidone have been on hold (4) Leukocytosis: Plan: WBC 13 from 20 yesterday (were normal pre-op), in setting of steroids. No signs or symptoms of infection at this time Monitor CBC (5) Hypothyroidism: Plan: Continue levothyroxine (6) Rheumatoid arthritis: Plan: Methotrexate placed on hold by primary service DVT Prophylaxis: As per primary service PCP: Vernon Hernandez MD in [place], [place] Disposition: Routine DC planning as per primary service. Anticipate discharge home tomorrow Care coordinated with Dr Edison Addison spent a total of 35 minutes coordinating, documenting, and providing care for this patient excluding time spent in the performance of separately billed services or time spent by another provider/QHP. This included personally reviewing all current laboratories and imaging studies, medical reconciliation, outpatient chart review and discussion with specialists. Admission and Anticipated Discharge Date Admission Date: January 21, 2025 Supervising Physician Co-Signing Physician Notes Patient is seen and examined at bedside. States having back pain at surgical site but otherwise no other complaints today.+ Flatus, no BM today. Denies any chest pain, dyspnea. On exam patient is obese, no apparent distress, normocephalic atraumatic, EOMI, normal breath sounds, clear to auscultation, S1- S2, trace pedal edema, abdomen soft, nontender, normal bowel sounds, back--surgical site in dressing, drain, alert, awake, oriented, grossly no focal deficits. Patient is consulted for postop medical management. Patient had multilevel lumbosacral spondylosis with radiculopathy, lumbar spondylolisthesis and underwent lumbar decompression, fusion surgery by Dr. Lennon on 01/21/2025. Postoperative acute blood loss anemia. Currently no indication for blood transfusion. Leukocytosis likely secondary to Decadron. Activity, wound care, DVT prophylaxis as per primary team. Continue bowel regimen. Monitor hyponatremia. Consider to discontinue chlorthalidone on discharge. Agree with hyponatremia workup as above. I personally interviewed and examined the patient at bedside. I have reviewed the advanced practitioner's documentation on the date of service referred in note and agree with plan. Patient's care is coordinated with Rosana Morales PA-C. Please refer to the documentation above for details of patient's presentation and for discussion of other issues. I spent a total of 26minutes coordinating, documenting, and providing care for this patient excluding time spent in the performance of separately billed services or time spent by another provider/QHP. Subjective Patient seen and examined sitting up in bed. Reports having some low back pain. States yesterday ambulated quite a bit and thinks she may have over exerted. Passing flatus. No BM in 2 days. Denies abdominal pain. Eating and drinking well. Denies fever/chills, diaphoresis, N/V, LUJAN, dizziness, CP, SOB, cough, rhinorrhea, abdominal pain, paresthesias, extremity weakness, extremity edema, rashes, urinary symptoms. Review of Systems Review of Systems: All systems reviewed & are unremarkable except as noted in HPI & below Physical Exam Physical Exam: General: no distress, obese elderly female Head: normocephalic, atraumatic Eyes: conjunctiva non-injected, anicteric ENT: normal inspection external ears, nose, mucous membranes moist Neck: supple, trachea midline Lungs: clear, no respiratory distress, no wheezing/rhonchi/rales CV: RRR, no pretibial edema Abd: normal BS, soft, non-tender Back: Surgical dressing in place and dry. SIRISHA drain with serosanguineous drainage Ext: no cyanosis, no calf tenderness; pedal pushes and pulls intact, sensation to light touch intact Neuro: A&O x 3, no focal deficits noted, normal affect Skin: warm, dry Results & Data Results & Data Vital Signs (Past 12 Hours) Vital Signs Temp Pulse Resp BP Pulse Ox O2 Del Method 01/22/25 23:15 36.6 C 66 18 139/76 98 Room Air Laboratory Results Short CBC 01/23/25 Range/Units 06:14 WBC 13.27 H (4.8-10.8) K/ul Hgb 9.6 L (12.0-16.0) g/dl Hct 28.0 L (37.0-47.0) % Plt Count 168 (130-400) K/uL BMP 01/22/25 01/23/25 14:58 06:14 Sodium 126 L 130 L Potassium 4.4 3.9 Chloride 92 L 97 L Carbon Dioxide 26 29 BUN 21 25 H Creatinine 1.50 H 1.26 H Glucose 193 H 119 H Calcium 8.5 L 8.0 L (3) Hypertension Hypertension type: unspecified Qualified Code(s): I10 - Essential (primary) hypertension (5) Hypothyroidism Hypothyroidism type: unspecified Qualified Code(s): E03.9 - Hypothyroidism, unspecified (6) Rheumatoid arthritis Rheumatoid arthritis location: unspecified site Rheumatoid factor presence: unspecified presence Qualified Code(s): M06.9 - Rheumatoid arthritis, unspecified
[2025-01-23 07:23] LABS: Anion Gap 4.0 (3-11); Blood Urea Nitrogen 25.0 mg/dl (6-23); Calcium 8.0 mg/dl (8.6-10.3); Carbon Dioxide 29.0 mmol/L (21-32); Chloride 97.0 mmol/L (98-107); Creatinine Clr Calc Pharmacy 41.0 ml/min; Glucose 119.0 mg/dl (70-99(Fasting)); Potassium 3.9 mmol/L (3.5-5.1); Sodium 130.0 mmol/L (136-145)
--- NOTE | 2025-01-23 08:11 | Orthopedic Progress Note ---
Date of Service January 23, 2025 Assessment & Plan (1) Multilevel lumbosacral spondylosis with radiculopathy: Plan: Cindy is postoperative day 2 status post L3-S1 decompression and fusion. Will continue with physical therapy. Maintain SIRISHA drain. She can use ice to her lumbar incision as needed. DVT prophylaxis is in the form of teds and SCDs. Continue with pain control. Anticipate discharge home tomorrow Admission and Anticipated Discharge Date Admission Date: January 21, 2025 Subjective Cindy is here postoperative day 2 status post lumbar decompression and fusion L3-S1. She is doing really well. Leg pain has resolved. Back pain is controlled. She is passing flatus but no bowel movement. SIRISHA drain output last shift is 85 cc. H&H this morning are 9.6 and 28.0 respectively. Yesterday in physical therapy ambulate 150 feet. Review of Systems Review of Systems: All systems reviewed & are unremarkable except as noted in HPI & below Physical Exam Physical Exam: She is laying in bed in no acute distress alert and oriented x 3 Strength intact bilateral lower extremities Lumbar dressing is clean dry intact with functioning SIRISHA drain Results & Data Vital Signs (Past 12 Hours) Vital Signs Temp Pulse Resp BP Pulse Ox O2 Del Method 01/23/25 07:34 36.7 C 72 18 139/67 94 Room Air 01/22/25 23:15 36.6 C 66 18 139/76 98 Room Air Queries Orthopedic Spine Obesity: Yes
[2025-01-24 07:11] LABS: Hematocrit (blood only) 29.3 % (37.0-47.0); Hemoglobin 9.6 g/dl (12.0-16.0); Immature Granulocytes # (auto) 0.07 K/uL (0.01-0.20); Immature Granulocytes % (auto) 0.5 %; Mean Corpuscular Hemoglobin 32.1 pg (25.0-34.0); Mean Corpuscular Volume 98.0 fL (80.0-100.0); Platelet Count 162 K/uL (130-400); RDW Standard Deviation 46.0 fL (36.4-46.3); Red Blood Count 2.99 M/uL (4.20-5.40); White Blood Count 14.03 K/ul (4.8-10.8)
--- NOTE | 2025-01-24 07:27 | Hospitalist Progress Note ---
Date of Service January 24, 2025 Assessment & Plan (1) Multilevel lumbosacral spondylosis with radiculopathy: (2) S/P spinal surgery: Plan: Patient is a 74-year-old female with past medical history significant for rheumatoid arthritis, hypothyroidism, TONE, HTN and HLD who is being seen in consultation for routine postoperative medical management after undergoing elective L3-S1 decompression and fusion performed by Dr. Lennon earlier today after failing nonoperative care for treatment of multilevel lumbosacral spondylosis with radiculopathy. POD #3 s/p lumbar decompression and fusion L3-S1 by Dr. Lennon Per ortho for pain control, wound care, anticoagulation and activities Continue incentive spirometry, PT/OT when appropriate Planned discharge home today Acute blood loss anemia Hgb: 9.6 past two days and remains stable. (pre-op hgb 13.3, EBL 650ml) Asymptomatic, no transfusion indicated Monitor H&H Hyponatremia Na:131. Was 130 yesterday and Was 129 on 01/22. (Was 136 pre-op) S/P 1L NSS on 01/22 Today Serum osmolality: 280, urine osmolality: 386, urine sodium: 31, TSH: WNL Chlorthalidone has been on hold. Hold Chlorthalidone and potassium supplement on discharge Will need follow up labs in one week with PCP to recheck electrolytes CKD III Cr:1.0. Was 1.26 yesterday. (pre-op Cr: 1.29) Monitor renal functions (3) Hypertension: Plan: BP elevated overnight Home lisinopril was on hold post op. Plan to resume lisinopril today and can resume upon discharge Chlorthalidone and Kcl have been on hold and will remain on hold (4) Leukocytosis: Plan: WBC 14 from 20 01/22 (was normal pre-op), in setting of steroids. No signs or symptoms of infection at this time Monitor CBC (5) Hypothyroidism: Plan: Continue levothyroxine (6) Rheumatoid arthritis: Plan: Methotrexate placed on hold by primary service DVT Prophylaxis: As per primary service PCP: Vernon Hernandez MD in [place], [place] Disposition: To be discharged home today Care coordinated with Dr Edison Addison spent a total of 30 minutes coordinating, documenting, and providing care for this patient excluding time spent in the performance of separately billed services or time spent by another provider/QHP. This included personally reviewing all current laboratories and imaging studies, medical reconciliation, outpatient chart review and discussion with specialists. Admission and Anticipated Discharge Date Admission Date: January 21, 2025 Supervising Physician Co-Signing Physician Notes Patient is seen and examined at bedside. Does have lower back pain at surgical site after ambulating in hallway this morning. Had bowel movements. Offers no new complaints. Excited to be discharged home today. Denies any chest pain, dyspnea. On exam patient is obese, no apparent distress, normocephalic atraumatic, EOMI, normal breath sounds, clear to auscultation, S1-S2, trace pedal edema, abdomen soft, nontender, normal bowel sounds, back--surgical site in dressing, drain, alert, awake, oriented, grossly no focal deficits. Patient is consulted for postop medical management. Patient had multilevel lumbosacral spondylosis with radiculopathy, lumbar spondylolisthesis and underwent lumbar decompression, fusion surgery by Dr. Lennon on 01/21/2025. Postoperative acute blood loss anemia. Hemoglobin stable today. Currently no indication for blood transfusion. Leukocytosis likely secondary to Decadron. Activity, wound care, DVT prophylaxis as per primary team. Sodium level improved to 131 today. Monitor hyponatremia. Consider to discontinue chlorthalidone on discharge. Blood pressure improved, resume home lisinopril. Advised to follow-up with PCP in 1 week. I personally interviewed and examined the patient at bedside. I have reviewed the advanced practitioner's documentation on the date of service referred in note and agree with plan. Patient's care is coordinated with Rosana Morales PA-C. Please refer to the documentation above for details of patient's presentation and for discussion of other issues. I spent a total of 20minutes coordinating, documenting, and providing care for this patient excluding time spent in the performance of separately billed services or time spent by another provider/QHP. Subjective Patient seen and examined sitting up in bedside chair. Reports having some low back pain still. Had BM. Denies abdominal pain. Eating and drinking well. Denies fever/chills, diaphoresis, N/V, LUJAN, dizziness, CP, SOB, cough, rhinorrhea, abdominal pain, paresthesias, extremity weakness, extremity edema, rashes, urinary symptoms. Review of Systems Review of Systems: All systems reviewed & are unremarkable except as noted in HPI & below Physical Exam Physical Exam: General: no distress, obese elderly female Head: normocephalic, atraumatic Eyes: conjunctiva non-injected, anicteric ENT: normal inspection external ears, nose, mucous membranes moist Neck: supple, trachea midline Lungs: clear, no respiratory distress, no wheezing/rhonchi/rales CV: RRR, no pretibial edema Abd: normal BS, soft, non-tender Back: Surgical dressing in place and dry Ext: no cyanosis, no calf tenderness; pedal pushes and pulls intact, sensation to light touch intact Neuro: A&O x 3, no focal deficits noted, normal affect Skin: warm, dry Results & Data Results & Data Vital Signs (Past 12 Hours) Vital Signs Temp Pulse Resp BP Pulse Ox O2 Del Method 01/23/25 23:33 36.7 C 73 18 165/85 H 93 Room Air Laboratory Results Short CBC 01/24/25 Range/Units 06:31 WBC 14.03 H (4.8-10.8) K/ul Hgb 9.6 L (12.0-16.0) g/dl Hct 29.3 L (37.0-47.0) % Plt Count 162 (130-400) K/uL BMP 01/24/25 06:31 Sodium 131 L Potassium 4.1 Chloride 96 L Carbon Dioxide 30 BUN 21 Creatinine 1.06 Glucose 132 H Calcium 8.3 L (3) Hypertension Hypertension type: unspecified Qualified Code(s): I10 - Essential (primary) hypertension (5) Hypothyroidism Hypothyroidism type: unspecified Qualified Code(s): E03.9 - Hypothyroidism, unspecified (6) Rheumatoid arthritis Rheumatoid arthritis location: unspecified site Rheumatoid factor presence: unspecified presence Qualified Code(s): M06.9 - Rheumatoid arthritis, unspecified
[2025-01-24 07:44] LABS: Anion Gap 5.0 (3-11); Blood Urea Nitrogen 21.0 mg/dl (6-23); Calcium 8.3 mg/dl (8.6-10.3); Carbon Dioxide 30.0 mmol/L (21-32); Chloride 96.0 mmol/L (98-107); Creatinine Clr Calc Pharmacy 48.8 ml/min; Glucose 132.0 mg/dl (70-99(Fasting)); Potassium 4.1 mmol/L (3.5-5.1); Sodium 131.0 mmol/L (136-145)
[2025-01-24 08:00] LABS: Thyroid Stimulating Hormone 1.526 uIu/ml (0.300-4.500)
[2025-01-24 08:26] VITALS: BP 154/92; PULSE 76; RESP 16; TEMP 98.4; O2SAT 95
--- NOTE | 2025-01-24 09:45 | Discharge Summary ---
Date of Service January 24, 2025 Admission HPI Per Admitting Provider This is a 74-year-old female presents chronic persistent back and leg pain after failing course of nonoperative care is here for surgical intervention. Principal Diagnosis Lumbar spondylosis with radiculopathy Discharge Data Allergies Allergy/AdvReac Type Severity Reaction Status Date / Time No Known Allergies Allergy Verified 01/04/25 09:30 Consultations 01/21/25 16:02 Consult Hospitalist Routine Procedures Performed Operation Date: 01/21/25 10:25 Actual Procedures p L3-S1 Decompression and Fusion(Not Applicable) - Yash Lennon DO Ordered Studies 01/21/25 10:25 FL lumbar spine 2-3V Routine Hospital Course (1) Multilevel lumbosacral spondylosis with radiculopathy: Patient went multilevel lumbar depression fusion trial as well as taken orthopedic for postoperative. Postoperatively she progressed appropriately. Ambulating the halls. Pain controlled. Extra strength testing. SIRISHA drain decreasing appropriately. Subsidy discharged home. Discharge orders instructions were on the chart for further review. Total Time Total Time Spent Total Time Spent (In Minutes): 20 minutes Discharge Plan Discharge Items Patient Disposition: Home - Self-Care Reason For Visit: Spondylolisthesis Lumbar Region, Multilevel Lumbos Discharge Diagnosis: Lumbar spondylosis with radiculopathy Activity: As commented below Non-emergency contact: Primary Care Provider Call non-emergency contact if: you have any medication questions Follow-up/Referrals: Vernon Hernandez MD [Primary Care Provider] - Diet: Regular Addtl Attending Provider Instructions: ACTIVITY RECOMMENDATIONS: SELF CARE INSTRUCTIONS AFTER THORACIC/LUMBAR FUSIONS 1. You may walk to your tolerance. It is good exercise for your legs and back. Expect some back and intermittent leg aches and pains. 2. You may perform "counter-top" level activities (make a sandwich, eliel with a project, etc.). 3. No bending or lifting of more than 10 pounds or back twisting of any nature (roll like a log when turning in bed). 4. You may ride in a car for 20-30 minutes at a time. No driving until after your first visit with your doctor. 5. Frequent changes of position and restricting sitting to 30 minutes at a time will help limit the amount of back spasms and stiffness you may experience. 6. You may discontinue the use of ambulatory aids (cane, crutches, etc.) once your strength and confidence allow. 7. You may billing and insurance coordinator the shower and let water strike your incision when you arrive home at least once daily. Do not take a tub bath, sit in a hot tub or go into a swimming pool until after your first recheck in the office. 8. You may resume previous diet. SPECIAL CARE INSTRUCTIONS: VERY IMPORTANT TO READ AND REVIEW A. Your surgical incision has been closed with a cosmetic suture under the skin that will dissolve in about 6 weeks. In 14 days, you can use a pair of clean scissors and cut the suture that is left outside of the skin at the ends of your incision. 1. The small skin tapes can be removed 7 days after surgery if they have not fallen off by that point. 2. You may keep the wound open to air as much as possible to promote healing after post-op day number 5 unless told otherwise by your doctor. 3. If you think the wound looks like it is becoming infected (redness or worsening drainage) and/or you are experiencing fever, chill or worsening back pain and muscle spasms, contact the office so that we may evaluate you as soon as possible. B. Complications are uncommon, but please contact us if you have any signs or symptoms of: 1. wound infection (fever higher than 102.5 degrees F, redness, separation of wound, drainage, or increasing pain from the incision) 2. blood clots in legs (pain, swelling, redness and warmth in legs) 3. urinary tract infection (fever higher than 102.5 degrees F, burning upon urination or increased frequency of urination) 4. nerve problems (inability to walk on your toes or heels, numbness, loss of bowel or bladder control) 5. any other symptoms that concern you C. Please call the office at if you have any concerns or questions about your operation or recovery. D. No smoking! Smoking drastically decreases the chance of a solid fusion. E. Do not take any anti-inflammatory medications (Indocin, Advil, Motrin, Aspirin, Naprosyn, etc.) as these may inhibit the chance of a solid fusion. Tylenol is okay to take for pain. MANAGING PAIN AFTER SPINAL SURGERY 1. Narcotic medication is intended for short-term use and will be provided for surgical pain. Surgical pain usually lasts for a period of 4-6 weeks. Narcotic medication includes Percocet, Vicodin, Darvocet, Tylenol #3 or Lortab. 2. Longer-term pain is more appropriately treated with non-narcotic medication such as Tylenol ES. 3. Muscle spasm is not appropriately treated with narcotics. Muscle relaxers such as Soma, Flexeril or Skelaxin can be used along with Tylenol ES. 4. Remember that we all live with some "aches and pains". This is not unusual or uncommon after an injury or as we get older. a. Back pain is expected and may include muscle spasms for 4 to 6 weeks after surgery. The pain should gradually improve. If the pain worsens for no apparent reason, please contact the office. b. Intermittent leg pain may also be experienced and should not be concerned about unless it worsens for no apparent reason. If so, please contact the office. 5. We will provide appropriate medication within the normal guidelines of their prescribed use. We will also be very cautious and aware of potential abuse and extended duration of patients' medication needs. a. Pain medications are for your comfort and to assist with sleep and rest so that the tissue can heal. They are not provided in order to return to normal activity and should not be used through the day. To do so or worsening pain at night can result from ongoing tissue damage and development of tolerance to the prescribed medicine. 6. Please allow 2-3 days to process refills. Prescriptions will not be mailed but must be picked up at the office. FOLLOW UP VISIT: Keep your scheduled follow-up appointment. Any questions, please call the office at . Pending Studies at Discharge: No Stand-Alone Forms: [facility], Smoking Cessation Medications and DC Order Prescriptions: New tramadol 50 mg tablet 50 mg PO Q6H PRN (Reason: pain, moderate) Qty: 30 0RF oxycodone 5 mg tablet 5 mg PO Q6H PRN (Reason: pain) Qty: 30 0RF Continued chlorthalidone 50 mg Tablet 50 mg PO QAM aspirin [Aspir-81] 81 mg Tablet,Delayed Release (Dr/Ec) 81 mg PO QAM levothyroxine 88 mcg Tablet 88 mcg PO QAM potassium chloride 8 mEq Tablet Extended Release 8 meq PO QAM lisinopril 10 mg Tablet 10 mg PO QAM methotrexate sodium 2.5 mg Tablet 10 mg PO UD Patient Comments: sundays at 9pm ferrous sulfate 325 mg (65 mg iron) Tablet 325 mg PO QAM folic acid 800 mcg Tablet 0.8 mg PO DAILY [id number] 333-133-5 mg Tablet 1 tab PO DAILY cholecalciferol (vitamin D3) [Vitamin D3] 125 mcg (5,000 unit) Tablet 125 mcg PO DAILY [place] 3 Fish Oil 900-1,400 mg Capsule,Delayed Release(Dr/Ec) 1 cap PO UD Probiotic Complex 25 billion cell -100 mg Capsule 1 cap PO QAM cyanocobalamin (vitamin B-12) 5,000 mcg Capsule 10,000 mcg PO DAILY Discharge Orders: Discharge Order (Routine); Ordered 01/24/25 Ordered By: Yash Lennon Admission Data Admit Date/Time: 01/21/25 14:35 Attending Provider: aYsh Lennon Admit Provider: Yash Lennon Primary Care Provider: Vernon Hernandez Other Providers: Deborah Robbins; Memo Hogan
== END 2025-01-24 14:44 | disposition home or self-care (01) | DRG 427 ==
LOC: ASU 08:54 → INTOOBSV 14:35 → 3N 14:35

== ENCOUNTER 2025-04-11 11:14 | Observation (INO) ==
--- NOTE | 2025-04-11 13:06 | Emergency Department Note ---
Impression & Plan Sacral fracture, S/P spinal surgery, Multilevel lumbosacral spondylosis with radiculopathy ED Provider Note NAME: RIDGE DE LA VEGA AGE: 74 SEX: F : 1950 ARRIVES VIA: Walk-In INFORMANT: Patient, ED PROVIDER(S): Esperanza Gage MD CHIEF COMPLAINT: Sent in for pain control/surgery HPI: This is a 74-year-old female presenting for pain control/possible surgery. Patient notes that she had a spinal surgery/fusion in January. She is seeing Dr. Lennon on Saturday, 2 days ago for sacral/back pain. She had MRI which revealed a fracture. She was advised to either take pain medication at home or come to the ER for pain control and operative management by Dr. Lennon. She has not noted any saddle anesthesia, numbness, tingling, motor function weakness, urinary or bowel incontinence. ROS: See above HPI for pertinent positives & negatives. A total of 10 systems reviewed and were otherwise negative. PAST MEDICAL HISTORY: See Below PAST SURGICAL HISTORY: See Below FAMILY HISTORY: See Below SOCIAL HISTORY: See Below HOME MEDICATIONS: See Below ALLERGIES: See Below VITALS: See Below PHYSICAL EXAMINATION: General: resting comfortably in no acute distress Head: Normocephalic and atraumatic Eyes: Normal inspection, extraocular muscles intact Ear, nose, throat: Normal external exam Neck: Normal range of motion Respiratory: lungs clear to auscultation bilaterally Cardiovascular: Regular rate/rhythm, no murmur GI: soft, nontender, no guarding or rebound Extremities: nontender, moves all extremities Neuro: The patient awake and alert, appropriately conversive, no focal deficits, symmetric faces Skin: Warm, dry, and intact MEDICAL DECISION MAKING: This is a 74-year-old female presenting for possible sacral bone fracture - I am unable to view imaging as it is not in our system - Care discussed with orthopedic spinal surgical PA who states that patient had S1/S2 fracture noted on imaging on Saturday. Plan to be for admission to medicine with possible operative management early this week. In the meantime we will get pain control - Patient on Tylenol, Toradol while in the emergency department. - Admitted to medical service under Dr. Montana Differential diagnosis: Pelvic fracture, sacral fracture, lumbar fracture Independent History obtained from: [facility] interpreted by me: ECG: None Cardiac Monitoring: An order was placed for continuous cardiac monitoring. The monitor shows a rate of 78 with sinus rhythm. Past Med/Surg History Problem List (Updated 04/11/25 @ 15:47 by Esperanza Gage MD) Sacral fracture (Acute) Leukocytosis S/P spinal surgery (Acute) Multilevel lumbosacral spondylosis with radiculopathy (Acute) Medical History Rheumatoid arthritis Taking MTX Hypothyroidism Hypertension controlled, stable per pt Hyperlipidemia History of COVID-19 (~2020) ER evaluation (denies hospitalization)-symptoms resolved Surgical History History of anesthesia reaction Awareness during knee replacement and "talked to anesthesiologist" History of bilateral tubal ligation History of total knee replacement Left History of tooth extraction Hx of external ear surgery Right, cancer area removed Family History Mother Cancer unknown type Social History Smoking Status: Never smoker Second Hand Exposure: No; Do You Dip or Chew Tobacco: No; Hx Alcohol Use: Yes Alcohol type: wine Hx Substance Use: No Preferred Language: [place] Islander Communication Ability: Effective Bar Roller Required: No Beliefs That Will Affect Care: None Current Living Situation: Family Feels Safe at Home: Yes Assistive Devices: Cane and Walker Allergies Allergies Allergy/AdvReac Type Severity Reaction Status Date / Time shrimp Allergy Unknown Unverified 04/11/25 14:04 Home Meds Home Medications Medication Instructions Recorded Confirmed aspirin 81 mg tablet,delayed 81 mg PO QAM 01/04/25 04/11/25 release cholecalciferol (vitamin D3) 125 125 mcg PO DAILY 01/04/25 04/11/25 mcg (5,000 unit) tablet (Vitamin D3) cyanocobalamin (vitamin B-12) 10,000 mcg PO DAILY 01/04/25 04/11/25 5,000 mcg capsule ferrous sulfate 325 mg (65 mg 325 mg PO QAM 01/04/25 04/11/25 iron) tablet folic acid 800 mcg tablet 0.8 mg PO DAILY 01/04/25 04/11/25 levothyroxine 88 mcg tablet 88 mcg PO QAM 01/04/25 04/11/25 lisinopril 10 mg tablet 10 mg PO QAM 01/04/25 04/11/25 methotrexate sodium 2.5 mg tablet 10 mg PO WK 01/04/25 04/11/25 omega 9-lcw-cdh-fish oil 900 1 cap PO UD 01/04/25 04/11/25 mg-1,400 mg capsule,delayed release acetaminophen 300 mg-codeine 30 mg 1 tab PO Q6H 04/11/25 04/11/25 tablet alprazolam 0.5 mg tablet 0.5 mg PO BID PRN Anxiety 04/11/25 04/11/25 Results & Data (ED) Vital Signs Vital Signs - 24 hr 04/11/25 11:25 04/11/25 13:20 04/11/25 14:45 Temperature 37.1 C Temperature Source Temporal Artery Scan Pulse Rate 76 Pulse Rate [Left Finger] 66 69 Respiratory Rate 21 20 20 Respiratory Effort / Characteristics Non-Labored Spontaneous Respiratory Depth Normal Respiratory Pattern Regular Blood Pressure 161/79 H Blood Pressure [Left Arm] 152/76 H 142/67 H Blood Pressure Mean 106 Blood Pressure Mean [Left Arm] 101 92 Pulse Oximetry 98 98 98 Oxygen Delivery Method Room Air Room Air Sepsis Recent Fever Within 48 Hours No Sepsis New/Unexplained Change in Mental Status No Sepsis Action Taken by Nursing No Action Required 04/11/25 15:24 Temperature 36.6 C Temperature Source Oral Pulse Rate 78 Pulse Rate [Left Finger] Respiratory Rate 16 Respiratory Effort / Characteristics Respiratory Depth Respiratory Pattern Blood Pressure 147/70 H Blood Pressure [Left Arm] Blood Pressure Mean Blood Pressure Mean [Left Arm] Pulse Oximetry 99 Oxygen Delivery Method Room Air Sepsis Recent Fever Within 48 Hours Sepsis New/Unexplained Change in Mental Status Sepsis Action Taken by Nursing Laboratory Data 04/11/25 12:56 04/11/25 12:56 Lab Results 04/11/25 Range/Units 12:56 WBC 8.56 (4.8-10.8) K/ul RBC 3.73 L (4.20-5.40) M/uL Hgb 11.3 L (12.0-16.0) g/dL Hct 35.2 L (37.0-47.0) % MCV 94.4 (80.0-100.0) fL MCH 30.3 (25.0-34.0) pg MCHC 32.1 (32.0-36.0) g/dL RDW Std Deviation 50.4 H (36.4-46.3) fL RDW Coeff of Neto 14.8 H (11.5-14.5) % Plt Count 252 (130-400) K/uL MPV 10.1 (9.4-12.4) fL Immature Gran % (Auto) 0.2 % Neut % (Auto) 49.9 % Lymph % (Auto) 35.3 % Lamb % (Auto) 11.3 % Eos % (Auto) 2.6 % Baso % (Auto) 0.7 % Neut # (Auto) 4.27 (1.40-6.50) K/uL Lymph # (Auto) 3.02 (1.20-3.40) K/uL Lamb # (Auto) 0.97 H (0.11-0.59) K/uL Eos # (Auto) 0.22 (0.00-0.50) K/uL Baso # (Auto) 0.06 (0.00-0.20) K/uL Immature Gran # (Auto) 0.02 (0.01-0.20) K/uL Sodium 134 L (136-145) mmol/L Potassium 3.8 (3.5-5.1) mmol/L Chloride 98 (98-107) mmol/L Carbon Dioxide 29 (21-32) mmol/L Anion Gap 7 (3-11) BUN 20 (6-23) mg/dl Creatinine 1.11 (0.6-1.2) mg/dl Est Cr Clr Drug Dosing 45.7 ml/min eGFR 52.16 BUN/Creatinine Ratio 18.0 (10-20) Glucose 113 H (70-99(Fasting)) mg/dl Calcium 9.6 (8.6-10.3) mg/dl Lipase 22 (11-82) U/L Administered Medications Discontinued Medications Acetaminophen (Ofirmev) 1,000 mg in 100 mls @ 400 mls/hr IV NOW STA Stop: 04/11/25 13:14 Last Infusion: 04/11/25 13:40 Dose: Infused Documented By: Admin: 04/11/25 13:25 Dose: 400 mls/hr Documented By: GONZALES Ketorolac Tromethamine (Ketorolac Tromethamine 15 Mg/Ml Vial) 15 mg IV NOW ONE Stop: 04/11/25 13:01 Last Admin: 04/11/25 13:21 Dose: 15 mg Documented By: GONZALES Discharge Plan Visit Data Chief Complaint: Back Injury/Pain Stated Complaint: BACK, NOTIFIY DOC APRYL WORSE ED Provider: Esperanza Gage Discharge Problem: Sacral fracture, S/P spinal surgery, Multilevel lumbosacral spondylosis with radiculopathy Patient Disposition: Admitted As Inpatient Condition: Fair Discharge Instructions Interventions: ED Discharge Assessment Last Done: 04/11/25 15:24 Forms Stand Alone Forms: [employer] Prescriptions Prescriptions: No Action aspirin 81 mg Tablet,Delayed Release (Dr/Ec) 81 mg PO QAM levothyroxine 88 mcg Tablet 88 mcg PO QAM lisinopril 10 mg Tablet 10 mg PO QAM methotrexate sodium 2.5 mg Tablet 10 mg PO WK Patient Comments: sundays at 9pm Rx Instructions: 4 TABS SATURDAY NIGHT ONCE A WEEK ferrous sulfate 325 mg (65 mg iron) Tablet 325 mg PO QAM folic acid 800 mcg Tablet 0.8 mg PO DAILY cholecalciferol (vitamin D3) [Vitamin D3] 125 mcg (5,000 unit) Tablet 125 mcg PO DAILY omega 1-aqu-gsa-fish oil 900-1,400 mg Capsule,Delayed Release(Dr/Ec) 1 cap PO UD cyanocobalamin (vitamin B-12) 5,000 mcg Capsule 10,000 mcg PO DAILY acetaminophen-codeine 300-30 mg tablet 1 tab PO Q6H alprazolam 0.5 mg tablet 0.5 mg PO BID PRN (Reason: Anxiety) Referrals Referrals: Vernon Hernandez MD [Primary Care Provider] -
[2025-04-11 13:08] LABS: Hematocrit (blood only) 35.2 % (37.0-47.0); Hemoglobin 11.3 g/dL (12.0-16.0); Immature Granulocytes # (auto) 0.02 K/uL (0.01-0.20); Immature Granulocytes % (auto) 0.2 %; Mean Corpuscular Hemoglobin 30.3 pg (25.0-34.0); Mean Corpuscular Volume 94.4 fL (80.0-100.0); Platelet Count 252 K/uL (130-400); RDW Standard Deviation 50.4 fL (36.4-46.3); Red Blood Count 3.73 M/uL (4.20-5.40); White Blood Count 8.56 K/ul (4.8-10.8)
[2025-04-11] MEDS: KETOROLAC TROMETHAMINE 15 MG/ML VIAL IV ONE (13:21)
[2025-04-11] MEDS: ACETAMINOPHEN 1,000 MG/100 ML VIAL IV STA (13:25)
[2025-04-11 13:26] LABS: Anion Gap 7.0 (3-11); Blood Urea Nitrogen 20.0 mg/dl (6-23); Calcium 9.6 mg/dl (8.6-10.3); Carbon Dioxide 29.0 mmol/L (21-32); Chloride 98.0 mmol/L (98-107); Creatinine Clr Calc Pharmacy 45.7 ml/min; Glucose 113.0 mg/dl (70-99(Fasting)); Lipase 22.0 U/L (11-82); Potassium 3.8 mmol/L (3.5-5.1); Sodium 134.0 mmol/L (136-145)
--- NOTE | 2025-04-11 14:13 | History & Physical Report ---
Date of Service April 11, 2025 Assessment & Plan (1) Sacral fracture: (2) Multilevel lumbosacral spondylosis with radiculopathy: (3) S/P spinal surgery: Artis White is a pleasant 74yo F with PMHx L3-S1 spondylosis w/ radiculopathy s/p decompression and fusion surgery on 01/21/25, ?low bone density (no documented/reported osteoporosis or -penia), rheumatoid arthritis on methotrexate, HTN, hypothyroidism, iron deficiency, and anxiety presenting to the ED for progressing low back pain with no reportable falls or trauma with known S1-S2 fracture as seen on imaging at orthopedic office visit on Monday 04/09, being admitted for pain management and surgical stabilization. #Sacral fracture, S1-S2 Vital signs stable since ER presentation; no falls or trauma reported; new known fracture based on imaging on Sat04/09/25 (unclear if was CT or MRI), reportedly Dr. Lennon will operate early this week No obvious strength or sensation deficits and with no red flag symptoms such as bowel/bladder incontinence or saddle anesthesia continue pain control: given toradol 15mg IV and tylenol 1000mg IV in ER - may take home Tylenol-codeine 300-30mg q6h - ordered lidocaine 5% patch to apply to area of pain - ordered calcitonin nasal spray daily for pain and bone density benefit - for severe pain, may have morphine 1mg IV q4h as needed - naloxone for respiratory depression - will reach out to Dr. Lennon early Saturday04/12/25 - after procedure, will order PT/OT #Low bone density #?osteoporosis vs osteopenia takes vitamin D3 daily, no prescribed bone density medications notes DEXA was done in recent years but at [facility] Sanam will see if we can obtain relevant images and notes from them - continue daily vit D supplementation - calcitonin nasal spray as above #HTN has been 140s-160s/60-70s since coming to the ED 04/11, likely elevated due to pain - may continue home lisinopril 10mg qAM - pain control as above should help as well chronic, stable: hypothyroidism- continue levothyroxine anxiety- continue alprazolam 0.5mg BID prn rheumatoid arthritis- may continue MTX 10mg Saturday evening at 2100 iron deficiency- continue ferrous sulfate 325mg qAM VTE ppx: given one dose of 5000 units heparin Diet: regular; NPO midnight Dispo: med/surg History of Present Illness Chief Complaint: sacral fracture Primary Care Provider: Vernon Hernandez MD Cindy is a pleasant 74yo F with PMHx L3-S1 spondylosis w/ radiculopathy s/p decompression and fusion surgery on 01/21/25, here for progressing pain in midline lower back. Denies any falls or trauma, but endorses ever since her surgery on 01/21/[address] Lennon, after initial improvement, pt has been having progressing pain in her lower back. Tingling and numbness were originally more in the R leg before the surgery, but since then her L leg has been more affected. States the pain is now typically 8/10 and in midline lower back slightly to the left but does frequently get up to 9-10 pain. She had a scheduled office visit with Dr. Lennon on Saturday04/09/25, at which imaging showed a new S1-S2 fracture. Dr. Lennon said he would operate, but left it to the patient to decide if she wanted to wait and see if the pain got better or worse. As it continued to worsen, pt came to the ER this afternoon for pain control while awaiting surgery for the new fracture. Reportedly Dr. Lennon will be back tomorrow, Saturday04/12/25. Denies any known history of osteoporosis or osteopenia, however reports she had a DEXA in recent years documented at [facility]. Has been taking vitamin D3 daily. Pt denies any anesthesia of the underwear region, nor bowel/bladder incontinence or retention. States she has pain with sitting, but is able to walk short distances with her walker. Denies significant difficulty walking or moving her legs appropriately. ER course: given 15mg Toradol IV, 1000mg tylenol IV Allergies Allergy/AdvReac Type Severity Reaction Status Date / Time shrimp Allergy Unknown Unverified 04/11/25 14:04 Home Medications Medication Instructions Recorded Confirmed Type aspirin 81 mg tablet,delayed 81 mg PO QAM 01/04/25 04/11/25 History release cholecalciferol (vitamin D3) 125 125 mcg PO DAILY 01/04/25 04/11/25 History mcg (5,000 unit) tablet (Vitamin D3) cyanocobalamin (vitamin B-12) 10,000 mcg PO DAILY 01/04/25 04/11/25 History 5,000 mcg capsule ferrous sulfate 325 mg (65 mg 325 mg PO QAM 01/04/25 04/11/25 History iron) tablet folic acid 800 mcg tablet 0.8 mg PO DAILY 01/04/25 04/11/25 History levothyroxine 88 mcg tablet 88 mcg PO QAM 01/04/25 04/11/25 History lisinopril 10 mg tablet 10 mg PO QAM 01/04/25 04/11/25 History methotrexate sodium 2.5 mg tablet 10 mg PO WK 01/04/25 04/11/25 History omega 4-pas-kzv-fish oil 900 1 cap PO UD 01/04/25 04/11/25 History mg-1,400 mg capsule,delayed release acetaminophen 300 mg-codeine 30 mg 1 tab PO Q6H 04/11/25 04/11/25 History tablet alprazolam 0.5 mg tablet 0.5 mg PO BID PRN Anxiety 04/11/25 04/11/25 History oxycodone 5 mg tablet 5 mg PO Q6H PRN pain #30 tabs 04/13/25 Rx tramadol 50 mg tablet 50 mg PO Q6H PRN pain, moderate 04/13/25 Rx #30 tabs Past Med/Surg History Problem List Sacral fracture (Acute) Leukocytosis S/P spinal surgery (Acute) Multilevel lumbosacral spondylosis with radiculopathy (Acute) Medical History Rheumatoid arthritis Taking MTX Hypothyroidism Hypertension controlled, stable per pt Hyperlipidemia History of COVID-19 (~2020) ER evaluation (denies hospitalization)-symptoms resolved Surgical History History of anesthesia reaction Awareness during knee replacement and "talked to anesthesiologist" History of bilateral tubal ligation History of total knee replacement Left History of tooth extraction Hx of external ear surgery Right, cancer area removed Family History Mother Cancer unknown type Social History Smoking Status: Never smoker Second Hand Exposure: No; Do You Dip or Chew Tobacco: No; Hx Alcohol Use: Yes Alcohol type: wine Hx Substance Use: No Preferred Language: Belarusian Communication Ability: Effective Round Boner Required: No Beliefs That Will Affect Care: None Current Living Situation: Family Feels Safe at Home: Yes Safety Concerns: Feels Safe At This Time Assistive Devices: Cane and Walker Review of Systems Review of Systems: All systems reviewed & are unremarkable except as noted in HPI & below Physical Exam Physical Exam: Gen: appearing in no acute distress, in good spirits, A&Ox3 CV: RRR, no m/r/g Resp: clear to auscultation b/l, good symmetric air movement, no w/r/R GI/Abd: +BS, nontender to palpation MSK: tenderness to palpation of midline lower lumbar spine to sacrum, no obvious step-off or gross deformities - strength 5/5 in b/l LE with hip and kn ee flexion/extension and ankle dorsi/plantarflexion Neuro: no facial droop, speech intact, no focal deficits; sensation intact through b/l LE Results & Data Results & Data Vital Signs (Past 12 Hours) Vital Signs Temp Pulse Pulse Resp BP BP Pulse Ox 04/11/25 13:20 66 20 152/76 H 98 04/11/25 11:25 37.1 C 76 21 161/79 H 98 O2 Del Method 04/11/25 13:20 Room Air 04/11/25 11:25 Room Air Supervising Physician Co-Signing Physician Notes During face to face encounter, I obtained a history and physical examination, discussed plan of care with patient and answered any questions. I discussed plan of care with Dr. Mckeon. I reviewed above note and agree with it except for the following: Patient will be admitted for a sacral fracture. Likely osteoporotic Patient will be placed on calcitonin spray and scheduled pain medicine. Will reach out to Ortho spine and monitor. Resident Activity Tracking Resident Involvement: Resident Care Provided Care Provided: Adult Hospital Medicine (1) Sacral fracture Encounter type: initial encounter Fracture type: closed Zone of sacrum fracture: unspecified portion of sacrum Qualified Code(s): S32.10XA - Unspecified fracture of sacrum, initial encounter for closed fracture
[2025-04-11] MEDS ORDERED: ONDANSETRON INJ 2 MG/ML 2 ML VIAL IV PRN (15:53)
[2025-04-11] MEDS ORDERED: POLYETHYLENE (MIRALAX) 17 GM PACK PO PRN (15:53)
[2025-04-11] MEDS: ACETAMINOPHEN W/CODEINE #3 1 TAB PO SCH (16:29)
[2025-04-11] MEDS: CALCITONIN SALMON NA 200 IU/AC 3.7 ML BTL SCH (16:31)
[2025-04-11] MEDS: LIDOCAINE 5% 1 PATCH TD SCH (16:31)
[2025-04-11] MEDS: HEPARIN SOD 5,000 UNIT/0.5 ML VIAL SQ STA (18:47)
[2025-04-11] MEDS: REMOVE LIDODERM PATCH SCH (23:10)
[2025-04-12] MEDS: ACETAMINOPHEN 325 MG TAB PO PRN (04:31)
[2025-04-12] MEDS: LEVOTHYROXINE SODIUM 88 MCG TABLET PO SCH (05:41)
[2025-04-12] MEDS: MoRPHine SULFATE 2 MG/ML CARP IV PRN (06:18)
--- NOTE | 2025-04-12 07:42 | CT Scan Report ---
EXAM: CT pelvis wo con CLINICAL HISTORY: sacral fracture TECHNIQUE: Multiple, contiguous, nonenhanced CT scan of the pelvis and hip joints in axial plane with multiplanar reconstructions. One of the following dose reduction techniques was utilized for this exam: Automated exposure control, adjustment of the mA and/or kV according to patient size, and use of iterative reconstruction. COMPARISON: FINDINGS: Bones: There is a transverse fracture of the S1 vertebral body with anterior displacement of the proximal segment by about 10mm. Age indeterminate, clinical correlation advised and if needed MRI assessment can help in demonnstarting bone marrow edema Surrounding sclerosis and irregular bony margins seen There is thin lucent line interrupting the cortex of the right sacral ala. There is diffuse osteopenia with heterogenous bony texture of the sacrum showing mixed lucencies and sclerosis. There is evidence of orthopedic fixation of the lower lumbar vertebrae with disc spacers application L4-5 and L5-S1 levels. Pubic symphysitis is noted Normal alignment of the femoral heads, necks, and acetabula. No evidence of avascular necrosis of the femoral heads. Joints: Normal joint spaces of the hip joints bilaterally. No evidence of joint effusions or intra-articular loose bodies. No significant degenerative changes or osteophyte formation. Soft Tissues: Normal appearance of the soft tissues surrounding the hips. No abnormal masses, swelling, or fluid collections. IMPRESSION: 1. There is a transverse fracture S1 vertebral body with anterior displacement of the proximal segment by about 10mm. Age indeterminate, clinical correlation advised and if needed MRI assessment can help in demonnstarting bone marrow edema 2. Surrounding sclerosis and irregular bony margins seen 3. There is thin lucent line interrupting the cortex of the right sacral ala. 4. There is diffuse osteopenia with heterogenous bony texture of the sacrum showing mixed lucencies and sclerosis. Electronically signed by Clifford Zee 04-12-2025 07:42 AM
[2025-04-12] MEDS: FOLIC ACID 400 MCG TAB PO SCH (08:37)
[2025-04-12] MEDS: FERROUS SULFATE 325 MG TAB PO SCH (08:37)
--- NOTE | 2025-04-12 10:22 | Orthopedic Consultation ---
Date of Consultation April 12, 2025 Assessment & Plan (1) Sacral fracture: CAT scan of the lumbar spine and pelvis demonstrate evidence of a displaced S1- S2 fracture with collapse. The hardware appears to be in appropriate position. In light of her displaced sacral fracture neurologic compromise and risk of permanent functional loss I am recommending emergent lumbar pelvic fusion to stabilize across her fractured and displaced sacrum so that she may begin therapy. Risk-benefit pros cons of terms were all in detail. Will plan for surgery as soon as possible. History of Present Illness Reason for Consultation: Severe back and leg pain with inability ambulate Attending Physician: David Montana History of Present Illness This is a 74-year-old female well-known to me having undergone lumbar decompression L3-S1. She presents with marked decline in status. She is barely able to stand and walk secondary to severe back and left leg pain. She has weakness affecting the left lower extremity. This began several weeks ago and has been worsening in nature. Allergies Allergy/AdvReac Type Severity Reaction Status Date / Time shrimp Allergy Unknown Unverified 04/11/25 14:04 Home Medications Medication Instructions Recorded Confirmed Type aspirin 81 mg tablet,delayed 81 mg PO QAM 01/04/25 04/11/25 History release cholecalciferol (vitamin D3) 125 125 mcg PO DAILY 01/04/25 04/11/25 History mcg (5,000 unit) tablet (Vitamin D3) cyanocobalamin (vitamin B-12) 10,000 mcg PO DAILY 01/04/25 04/11/25 History 5,000 mcg capsule ferrous sulfate 325 mg (65 mg 325 mg PO QAM 01/04/25 04/11/25 History iron) tablet folic acid 800 mcg tablet 0.8 mg PO DAILY 01/04/25 04/11/25 History levothyroxine 88 mcg tablet 88 mcg PO QAM 01/04/25 04/11/25 History lisinopril 10 mg tablet 10 mg PO QAM 01/04/25 04/11/25 History methotrexate sodium 2.5 mg tablet 10 mg PO WK 01/04/25 04/11/25 History omega 7-yiw-ryt-fish oil 900 1 cap PO UD 01/04/25 04/11/25 History mg-1,400 mg capsule,delayed release acetaminophen 300 mg-codeine 30 mg 1 tab PO Q6H 04/11/25 04/11/25 History tablet alprazolam 0.5 mg tablet 0.5 mg PO BID PRN Anxiety 04/11/25 04/11/25 History Patient History Medical History Rheumatoid arthritis Taking MTX Hypothyroidism Hypertension controlled, stable per pt Hyperlipidemia History of COVID-19 (~2020) ER evaluation (denies hospitalization)-symptoms resolved Surgical History History of anesthesia reaction Awareness during knee replacement and "talked to anesthesiologist" History of bilateral tubal ligation History of total knee replacement Left History of tooth extraction Hx of external ear surgery Right, cancer area removed Family History Mother Cancer unknown type Social History Smoking Status: Never smoker Second Hand Exposure: No; Do You Dip or Chew Tobacco: No; Hx Alcohol Use: Yes Alcohol type: wine Hx Substance Use: No Preferred Language: Bulgarian Communication Ability: Effective Engineering Instructor Required: No Beliefs That Will Affect Care: None Current Living Situation: Family Feels Safe at Home: Yes Safety Concerns: Feels Safe At This Time Assistive Devices: Walker Physical Exam Physical Exam: On exam incisions healing appropriate. She is able to stand with assistance but has marked difficulty with weightbearing to left lower extremity. Bench exam reveals breakaway weakness to the right lower extremity with a 3+ or 5 left dorsiflexion plantarflexion quadricep. Sensory is diminished. Deep and reflexes absent. Results & Data Vital Signs (Past 12 Hours) Vital Signs Temp Pulse Resp BP Pulse Ox O2 Del Method 04/12/25 07:27 36.8 C 72 16 143/72 H 97 Room Air 04/12/25 00:06 36.8 C 67 18 136/76 96 Room Air
[2025-04-12] MEDS: LACTATED RINGER'S 1,000 ML IV SCH (12:01)
[2025-04-12] MEDS ORDERED: METOCLOPRAMIDE HCL INJ 5 MG/ML 2 ML VIAL ONE (12:26)
[2025-04-12] MEDS ORDERED: MIDAZOLAM HCL 1 MG/ML 2ML VIAL ONE (12:26)
[2025-04-12] MEDS ORDERED: LIDOCAINE 2% 2 ML VIAL/AMP(20MG/ML) INFIL ONE (12:26)
[2025-04-12] MEDS ORDERED: ONDANSETRON INJ 2 MG/ML 2 ML VIAL ONE (12:26)
[2025-04-12] MEDS ORDERED: PROPOFOL IV EMULSION 10 MG/ML 20 ML VIAL IV ONE (12:28)
[2025-04-12] MEDS ORDERED: ROCURONIUM BROMIDE 10 MG/ML 5 ML VIAL IV ONE (12:29)
[2025-04-12] MEDS ORDERED: DEXAMETHASONE SOD INJ 4 MG/ML VIAL ONE (12:31)
[2025-04-12] MEDS ORDERED: ATROPINE SULFATE 0.1 MG/ML 10ML SYR IV PRN (12:39)
[2025-04-12] MEDS ORDERED: ONDANSETRON INJ 2 MG/ML 2 ML VIAL IV PRN ×2 (12:39→16:58)
--- NOTE | 2025-04-12 12:39 | Anesthesiology Consultation ---
Date of Service April 12, 2025 Assessment & Plan (1) Encounter for pre-operative examination: Chart Review Chart Review: Acceptable Risk for Surgery and Patient NOT seen in Pre Admission Testing Consults Requested none History Surgery Operation Date: 04/12/25 07:00 Proposed Procedures p Lumbar Pelvic Fusion - Yash Lennon DO Height/Weight Height: 5 ft 4 in Weight: 80.8 kg Allergies Allergy/AdvReac Type Severity Reaction Status Date / Time shrimp Allergy Unknown Unverified 04/11/25 14:04 Medications Home Medications Medication Instructions Recorded Confirmed Last Taken aspirin 81 mg tablet,delayed 81 mg PO QAM 01/04/25 04/11/25 01/14/25 08:00 release cholecalciferol (vitamin D3) 125 125 mcg PO DAILY 01/04/25 04/11/25 01/20/25 08:00 mcg (5,000 unit) tablet (Vitamin D3) cyanocobalamin (vitamin B-12) 10,000 mcg PO DAILY 01/04/25 04/11/25 01/20/25 08:00 5,000 mcg capsule ferrous sulfate 325 mg (65 mg 325 mg PO QAM 01/04/25 04/11/25 01/20/25 08:00 iron) tablet folic acid 800 mcg tablet 0.8 mg PO DAILY 01/04/25 04/11/25 01/20/25 08:00 levothyroxine 88 mcg tablet 88 mcg PO QAM 01/04/25 04/11/25 01/21/25 06:00 lisinopril 10 mg tablet 10 mg PO QAM 01/04/25 04/11/25 01/20/25 08:00 methotrexate sodium 2.5 mg tablet 10 mg PO WK 01/04/25 04/11/25 01/07/25 08:00 omega 6-kdn-rla-fish oil 900 1 cap PO UD 01/04/25 04/11/25 12/31/24 08:00 mg-1,400 mg capsule,delayed release acetaminophen 300 mg-codeine 30 mg 1 tab PO Q6H 04/11/25 04/11/25 Unknown tablet alprazolam 0.5 mg tablet 0.5 mg PO BID PRN Anxiety 04/11/25 04/11/25 Unknown Active Medications Generic Name Dose Route Start Last Admin Trade Name Freq PRN Reason Stop Dose Admin Acetaminophen 650 mg 04/11/25 15:53 04/12/25 04:31 Acetaminophen 325 Mg Tab PO 05/11/25 15:52 650 mg Q6H PRN Administration pain Acetaminophen/Codeine Phosphate 1 tab 04/11/25 16:00 04/12/25 10:53 Acetaminophen W/Codeine #3 1 Tab PO 05/11/25 15:59 1 tab Q6H CHOLO Administration Calcitonin [place] 1 sprays 04/11/25 16:00 04/12/25 08:38 Calcitonin [place] Na 200 Iu/Ac 3.7 Ml Btl NA 05/11/25 15:59 1 sprays DAILY CHOLO Administration Ferrous Sulfate 325 mg 04/12/25 09:00 04/12/25 08:37 Ferrous Sulfate 325 Mg Tab PO 05/12/25 08:59 325 mg QAM CHOLO Administration Folic Acid 800 mcg 04/12/25 09:00 04/12/25 08:37 Folic Acid 400 Mcg Tab PO 05/12/25 08:59 800 mcg DAILY CHOLO Administration Lactated Ringer's 1,000 mls @ 15 mls/hr 04/12/25 11:45 04/12/25 12:01 Lr IV 04/15/25 11:44 15 mls/hr .Q24H CHOLO Administration Levothyroxine Sodium 88 mcg 04/12/25 06:30 04/12/25 05:41 Levothyroxine Sodium 88 Mcg Tablet PO 05/12/25 06:29 88 mcg DAILYBB CHOLO Administration Lidocaine 1 patch 04/11/25 16:00 04/12/25 08:35 Lidocaine 5% 1 Patch TD 05/11/25 15:59 1 patch QAM CHOLO Administration Lisinopril 10 mg 04/12/25 09:00 04/12/25 08:37 Lisinopril 10 Mg Tab PO 05/12/25 08:59 10 mg QAM CHOLO Administration Methotrexate 10 mg 04/11/25 21:00 04/11/25 21:22 Methotrexate Sodium 2.5 Mg Tab PO 05/11/25 20:59 10 mg [place]@2100 CHOLO Administration Miscellaneous 1 each 04/11/25 23:00 04/11/25 23:10 Remove Lidoderm Patch N/A 05/11/25 22:59 1 each DAILY@2100 CHOLO Administration Morphine Sulfate 1 mg 04/11/25 15:53 04/12/25 06:18 Morphine Sulfate 2 Mg/Ml Carp IV 04/25/25 15:52 1 mg Q4H PRN Administration Pain NPO Date Last Intake of Fluids: 04/12/25 Time Last Intake of Fluids: 10:53 Date Last Intake of Solids: 04/11/25 Time Last Intake of Solids: 17:00 Past Medical History Medical History Rheumatoid arthritis Taking MTX Hypothyroidism Hypertension controlled, stable per pt Hyperlipidemia History of COVID-19 (~2020) ER evaluation (denies hospitalization)-symptoms resolved Past Family History Family History Mother Cancer unknown type Past Surgical History Surgical History History of anesthesia reaction Awareness during knee replacement and "talked to anesthesiologist" History of bilateral tubal ligation History of total knee replacement Left History of tooth extraction Hx of external ear surgery Right, cancer area removed Social History Smoking Status: Never smoker Do You Dip or Chew Tobacco: No Hx Alcohol Use: Yes Alcohol type: wine alcohol intake frequency: holidays/special occasions only Hx Substance Use: No substance use type: does not use Physical Exam Vital Signs Last Vital Signs Temp 98.4 F 04/12/25 11:56 Pulse 77 04/12/25 11:56 Resp 20 04/12/25 11:56 BP 169/91 H 04/12/25 11:56 Pulse Ox 98 04/12/25 11:56 O2 Del Method Room Air 04/12/25 11:56 Testing Laboratory Results 04/11/25 12:56 04/11/25 12:56
--- NOTE | 2025-04-12 12:54 | History & Physical Bridge Note ---
Date of Service April 12, 2025 History & Physical Bridge Note I have examined the patient, reviewed the History & Physical and in the interval since the performance of the History & Physical I have noted the following changes of clinical significance: no changes noted Recommending emergent lumbar pelvic fusion to prevent further neurologic deterioration and loss of function.
[2025-04-12] MEDS ORDERED: SUGAMMADEX SODIUM 200 MG/2 ML VIAL IV ONE (14:01)
[2025-04-12] MEDS: ceFAZolin 330 MG/ML 1 GM VIAL ONE (14:16)
[2025-04-12] MEDS: BUPIVACAINE/EPINEPHRINE 0.25% 1:200,000 30 ML VIAL ONE (14:16)
[2025-04-12] MEDS: FLOSEAL HEMOSTATIC MATRIX 10ML TOP ONE (15:14)
[2025-04-12] MEDS: IOPAMIDOL INJ 61% 15 ML VIAL INSTIL ONE (15:15)
--- NOTE | 2025-04-12 15:30 | Operative Report ---
Post Operative Report Pre & Post Diagnosis Operation Date: 04/12/25 07:00 Pre-Op Diagnosis: #1 displaced S1-S2 sacral fracture. Post-Op Diagnosis: Same with fracture of the L5 vertebral body I identified the patient and participated in the time-out.: Yes Procedure Operation Date: 04/12/25 07:00 Actual Procedures #1 lumbar pelvic fusion with placement of bilateral iliac bolts. #2 open bilateral SI joint fusion. #3 removal of S1 pedicle screw on the right. #4 kyphoplasty L5 vertebral body. #5 placement fuse collagen sponge, with Koros in the bilateral SI joints and the posterior gutters L5-S1. Surgeon Yash Lennon, Personnel Recruiter Tasneem Eastman Estimated Blood Loss 250 Findings Consistent with Post-Op Diagnosis Specimens None Indications This is a 74-year-old female who presents with a marked decline in status of both with ability to ambulate and neurologic function affecting left lower extremity. Imaging demonstrates evidence of displaced sacral fracture. She is here for surgical stabilization. Description of Procedure Patient was met with identified and forms and obtained. Patient was then taken to the operative suite underwent intubation placed in a prone position the Brooks table atop the Eric frame. All bony prominences well-padded eyes inspected to ensure no external pressure placed upon. This point the lumbar spine was prepped and draped normal sterile fashion. Sharp dissection with the assistance of Bovie cautery from down to and exposing the instrumentation from L3-S1 bilaterally. This included the exposure of the bilateral posterior aspect of the SI joints and iliac crest. I then with the assistance of fluoroscopy placed a bilateral iliac bolts. I then curetted and burred out the bilateral SI joints to subcortical bleeding bone. I then removed the end caps off of the pedicle screws from L3-S1. Tested all screws noting marked loosening of the right S1 pedicle screw. It was subsequently removed and I performed a kyphoplasty of the L5 vertebral body. This was followed by placement of a new pedicle screw in S1 on the right. Appropriate size rods were then contoured and locked into position bilaterally. I then placed infuse collagen sponge combined with Koros into the bilateral SI joints and posterolateral gutters L5-S1. Incision was then adwoa irrigated 15 round to drain inserted. Was then closed with 1 Vicryl in the fascia 2-0 Vicryl subcutaneously and 4 Monocryl for final skin closure. Steri-Strips sterile dressing placed. Patient waken taken PACU stable condition. Please note Tasneem Eastman was present of the entire procedure involved the patient positioning complex portion of the surgery and final skin c losure. I attest to the content of the Intraoperative Record and any orders documented therein. Any exceptions are noted below.
--- NOTE | 2025-04-12 15:41 | Fluoroscopy Report ---
FL pelvis 1-2V CLINICAL HISTORY: PELVIS FUSION COMPARISON STUDY: No previous studies for comparison. FINDINGS: 39 seconds of fluoroscopic time was utilized. The kidneys with dose was 37 mGy 4 fluoroscopic spot films are provided for interpretation. No true AP view was obtained There are pos tsurgical changes of a lower lumbar spinal decompression with posterior fusion interbody disc implant s, likely at the L4-5 and L5-S1 levels.. The pedicle screws appear to involve the L3, L4, L5 and S1 v ertebral bodies. There are adjoining spinal rods. In addition SI joint screws are visualized. Given t he limited [id number], accurate numbering is difficult. IMPRESSION: Postsurgical changes as described above. ACT 112: Negative or not required by law. Electronically signed by: Arden Buchanan M.D. 04/12/2025 3:40 PM
--- NOTE | 2025-04-12 16:20 | Anesthesiology Progress Note ---
Date of Service April 12, 2025 Anesthesia Post Procedure Vital Signs Vital Signs: Temp Pulse Pulse Pulse Resp BP BP 04/12/25 15:55 36.4 C L 66 19 163/89 H 04/12/25 15:45 35.6 C L 68 14 152/87 H 04/12/25 11:56 36.9 C 77 20 169/91 H 04/12/25 07:27 36.8 C 72 16 143/72 H 04/12/25 00:06 36.8 C 67 18 136/76 Pulse Ox O2 Del Method O2 Flow Rate 04/12/25 15:55 100 Oxymask 7 04/12/25 15:45 100 Oxymask 7 04/12/25 11:56 98 Room Air 04/12/25 07:27 97 Room Air 04/12/25 00:06 96 Room Air Pain Intensity Lower Back: Pain Intensity: 10 Transfer of Care Handoff Completed per policy Notes Mental Status: alert / awake / arousable Patient Amnestic to Procedure: Yes Nausea / Vomiting: adequately controlled Pain: adequately controlled Airway Patency, RR, SpO2: stable & adequate BP & HR: stable & adequate Hydration State: stable & adequate Anesthetic Complications: no major complications apparent
[2025-04-12] MEDS ORDERED: ALUMINUM/MAGNESIUM SUSP 30 ML UDC PO PRN (16:58)
[2025-04-12] MEDS ORDERED: LORazepam 0.5 MG TAB PO PRN (16:58)
[2025-04-12] MEDS ORDERED: DO NOT ADMINISTER FLU VACCINE PRN (16:58)
[2025-04-12] MEDS ORDERED: diphenhydrAMINE Capsule 25 MG CAP PO PRN (16:58)
[2025-04-12] MEDS ORDERED: DO NOT ADMINISTER PNEUMOCOCCAL VACCINE PRN (16:58)
[2025-04-12] MEDS ORDERED: ONDANSETRON 4 MG OD TAB PO PRN (16:58)
[2025-04-12] MEDS ORDERED: FAMOTIDINE 20 MG TAB PO PRN (16:58)
[2025-04-12] MEDS ORDERED: ACETAMINOPHEN 500 MG TAB PO PRN (16:58)
[2025-04-12] MEDS ORDERED: PHARMACY GLYCEMIC MGMT CONSULT PRN (16:58)
[2025-04-12] MEDS ORDERED: NALOXONE HCL 0.4 MG/1 ML VIAL/CARP IV PRN (16:58)
[2025-04-12] MEDS ORDERED: PROMETHAZINE 12.5 MG/50.5 ML BAG IV PRN (16:58)
[2025-04-12] MEDS ORDERED: MAGNESIUM HYDROXIDE SUSP 30 ML UDC PO PRN (16:58)
[2025-04-12] MEDS ORDERED: HYDROmorphone INJ 0.5 MG/0.5 ML SYR IV PRN (16:58)
[2025-04-12] MEDS ORDERED: LORazepam Inj 0.5 MG in SYRINGE 0.25 ML IV PRN (16:58)
[2025-04-12] MEDS ORDERED: ACETAMINOPHEN 1,000 MG/100 ML VIAL IV PRN (16:58)
[2025-04-12] MEDS ORDERED: SOD PHOSPHATE/SOD BIPHOSPHATE ENEMA 132 ML BTL PR PRN (16:58)
[2025-04-12] MEDS ORDERED: METOCLOPRAMIDE HCL INJ 5 MG/ML 2 ML VIAL IV PRN (16:58)
[2025-04-12] MEDS: HYDROmorphone INJ 1 MG/ML SYRINGE IV PRN (17:53)
--- NOTE | 2025-04-12 19:55 | Pharmacy Report ---
Glycemic Ortho Sign Off Note - Date of Service April 12, 2025 - Scope Glycemic Pharmacist consulted for glycemic control and to write orders per [facility] inpatient glycemic control protocol. - Assessment * Patient is not on any diabetes medications outpatient. No diabetes per provid er notes. - Plan For Inpatient Glycemic Control * Basal insulin * Not needed based on A1c, pre-op BSGs, and minimal risk factors for insulin resistance * Bolus insulin * Would recommend holding. Could consider adding on SSI if AM fasting >125 mg/dL on AM labs * Pharmacy is signing off of the glycemic consult. We will no longer be making adjustments to inpatient regimen. Please feel free to re-consult if needed. Thank you.
[2025-04-12] MEDS: DOCUSATE SODIUM/SENNA 50/8.6MG TAB PO SCH (21:08)
--- NOTE | 2025-04-12 23:36 | Hospitalist Progress Note ---
Date of Service April 12, 2025 Assessment & Plan (1) Sacral fracture: (2) Multilevel lumbosacral spondylosis with radiculopathy: (3) S/P spinal surgery: Plan Cindy is a pleasant 74yo F with PMHx L3-S1 spondylosis w/ radiculopathy s/p decompression and fusion surgery on 01/21/25, ?low bone density (no documented/reported osteoporosis or -penia), rheumatoid arthritis on methotrexate, HTN, hypothyroidism, iron deficiency, and anxiety presenting to the ED for progressing low back pain with no reportable falls or trauma with known S1-S2 fracture as seen on imaging at orthopedic office visit on Monday 04/09, being admitted for pain management and surgical stabilization. #Sacral fracture, S1-S2 Vital signs stable since ER presentation; no falls or trauma reported; new known fracture based on imaging on Sat04/09/25 (unclear if was CT or MRI), reportedly Dr. Lennon will operate early this week No obvious strength or sensation deficits and with no red flag symptoms such as bowel/bladder incontinence or saddle anesthesia continue pain control: given toradol 15mg IV and tylenol 1000mg IV in ER - may take home Tylenol-codeine 300-30mg q6h - ordered lidocaine 5% patch to apply to area of pain - ordered calcitonin nasal spray daily for pain and bone density benefit - for severe pain, may have morphine 1mg IV q4h as needed - naloxone for respiratory depression - consulted Dr. Lennon, performed lumbar pelvic fusion with placement of the b/l iliac bolts, open bilateral SI joint fusion, removal of S1 pedicle screw on the right, kyphoplasty L5 vertebral body, placement fuse collagen sponge, with Koros in the bilateral SI joints and the posterior gutters L5-S1. - will order PT/OT #Low bone density #?osteoporosis vs osteopenia takes vitamin D3 daily, no prescribed bone density medications notes DEXA was done in recent years but at [facility] will see if we can obtain relevant images and notes from them - continue daily vit D supplementation - calcitonin nasal spray as above #HTN has been 140s-160s/60-70s since coming to the ED 04/11, likely elevated due to pain - may continue home lisinopril 10mg qAM - pain control as above should help as well chronic, stable: hypothyroidism- continue levothyroxine anxiety- continue alprazolam 0.5mg BID prn rheumatoid arthritis- may continue MTX 10mg Saturday evening at 2100 iron deficiency- continue ferrous sulfate 325mg qAM VTE ppx: will resume lovenox in AM. Diet: regular; Dispo: med/surg Admission and Anticipated Discharge Date Admission Date: April 11, 2025 Subjective Patient reports having no significant pain after surgery Physical Exam Physical Exam: Gen: appearing in no acute distress, in good spirits, A&Ox3 CV: RRR, no m/r/g Resp: clear to auscultation b/l, good symmetric air movement, no w/r/R GI/Abd: +BS, nontender to palpation Neuro: no facial droop, speech intact, no focal deficits; sensation intact through b/l LE Results & Data Results & Data Vital Signs (Past 12 Hours) Vital Signs Temp Pulse Pulse Resp BP BP Pulse Ox 04/12/25 19:28 36.8 C 81 21 152/76 H 94 04/12/25 18:06 65 16 116/85 97 04/12/25 17:35 78 16 114/84 98 04/12/25 17:00 36.8 C 75 16 118/78 97 04/12/25 16:45 36.5 C 64 13 170/79 H 95 04/12/25 16:30 71 17 158/84 H 96 04/12/25 16:25 36.6 C 68 12 170/87 H 97 04/12/25 16:15 66 17 173/97 H 100 04/12/25 16:05 67 19 174/88 H 100 04/12/25 15:55 36.4 C L 66 19 163/89 H 100 04/12/25 15:45 35.6 C L 68 14 152/87 H 100 04/12/25 11:56 36.9 C 77 20 169/91 H 98 O2 Del Method O2 Flow Rate 04/12/25 19:28 Room Air 04/12/25 18:06 Room Air 04/12/25 17:35 Room Air 04/12/25 17:00 Room Air 04/12/25 16:45 Room Air 04/12/25 16:30 Room Air 04/12/25 16:25 Room Air 04/12/25 16:15 Room Air 04/12/25 16:05 Room Air 04/12/25 15:55 Oxymask 7 12/01/25 15:45 Oxymask 7 04/12/25 11:56 Room Air PG Care Time/CCT Total # of Minutes Spent Total Time Spent with Patient: Total time spent is greater than 50% in coordination of care (as documented) at patient's floor/unit and/or counseling patient: Coding Level of Care Code 70836 SUB INP/OBS CARE 3/50MIN Diagnoses Closed fracture of sacrum, unspecified portion of sacrum, initial encounter S32.10XA Multilevel lumbosacral spondylosis with radiculopathy M47.27 S/P spinal surgery Z98.890
[2025-04-13] MEDS: POLYETHYLENE (MIRALAX) 17 GM PACK PO SCH (06:13)
[2025-04-13 07:38] LABS: Hematocrit (blood only) 32.3 % (37.0-47.0); Hemoglobin 10.6 g/dL (12.0-16.0); Immature Granulocytes # (auto) 0.07 K/uL (0.01-0.20); Immature Granulocytes % (auto) 0.5 %; Mean Corpuscular Hemoglobin 30.8 pg (25.0-34.0); Mean Corpuscular Volume 93.9 fL (80.0-100.0); Platelet Count 266 K/uL (130-400); RDW Standard Deviation 50.1 fL (36.4-46.3); Red Blood Count 3.44 M/uL (4.20-5.40); White Blood Count 14.56 K/ul (4.8-10.8)
[2025-04-13 08:12] LABS: Anion Gap 8.0 (3-11); Blood Urea Nitrogen 19.0 mg/dl (6-23); Calcium 9.3 mg/dl (8.6-10.3); Carbon Dioxide 29.0 mmol/L (21-32); Chloride 99.0 mmol/L (98-107); Creatinine Clr Calc Pharmacy 45.7 ml/min; Glucose 125.0 mg/dl (70-99(Fasting)); Potassium 4.1 mmol/L (3.5-5.1); Sodium 136.0 mmol/L (136-145)
[2025-04-13] MEDS: CHOLECALCIFEROL 125 MCG (5,000 UNITS) TAB PO SCH (08:32)
[2025-04-13] MEDS: dexAMETHasone 6 MG in SYRINGE 0 ML IV SCH (08:32)
[2025-04-13] MEDS: ASPIRIN 81 MG ECTAB PO SCH (08:33)
--- NOTE | 2025-04-13 10:18 | Orthopedic Progress Note ---
Date of Service April 13, 2025 Assessment & Plan (1) Sacral fracture: Plan: At this time we will initiate physical therapy monitor her progress consider possible rehab. Admission and Anticipated Discharge Date Admission Date: April 11, 2025 Subjective Patient is comfortable. She has not been out of bed yet. Denies any leg pain. Physical Exam Physical Exam: On exam she has good strength testing. Sensory is intact lower extremities. Results & Data Vital Signs (Past 12 Hours) Vital Signs Temp Pulse Resp BP BP Pulse Ox O2 Del Method 04/13/25 08:16 36.4 C L 82 18 130/59 L 95 Room Air 04/13/25 04:38 37.1 C 74 16 119/64 93 Room Air 04/12/25 23:45 37.2 C 79 16 129/76 96 Room Air Queries Orthopedic Spine Vertebral Fracture Secondary to Osteoporosis: Yes
--- NOTE | 2025-04-13 10:35 | Billing Data ---
Date of Service April 11, 2025 Coding Level of Care Code 59895 INT INP/OBS CARE
[2025-04-13] MEDS: ENOXAPARIN INJ 40 MG/0.4 ML SYR SQ SCH (11:36)
[2025-04-13] MEDS: MELATONIN 3 MG TAB PO PRN (20:17)
--- NOTE | 2025-04-13 22:21 | Hospitalist Progress Note ---
Date of Service April 13, 2025 Assessment & Plan (1) Sacral fracture: (2) Multilevel lumbosacral spondylosis with radiculopathy: (3) S/P spinal surgery: Plan Cindy is a pleasant 74yo F with PMHx L3-S1 spondylosis w/ radiculopathy s/p decompression and fusion surgery on 01/21/25, ?low bone density (no documented/reported osteoporosis or -penia), rheumatoid arthritis on methotrexate, HTN, hypothyroidism, iron deficiency, and anxiety presenting to the ED for progressing low back pain with no reportable falls or trauma with known S1-S2 fracture as seen on imaging at orthopedic office visit on Monday 04/09, being admitted for pain management and surgical stabilization. #Sacral fracture, S1-S2 Age-related osteoporosis with current pathologic fracture, S1-S2 vertebrae Vital signs stable since ER presentation; no falls or trauma reported; new known fracture based on imaging on Sat04/09/25 (unclear if was CT or MRI) No obvious strength or sensation deficits and with no red flag symptoms such as bowel/bladder incontinence or saddle anesthesia continue pain control: given toradol 15mg IV and tylenol 1000mg IV in ER - may take home Tylenol-codeine 300-30mg q6h - ordered lidocaine 5% patch to apply to area of pain - ordered calcitonin nasal spray daily for pain and bone density benefit - for severe pain, may have morphine 1mg IV q4h as needed - naloxone for respiratory depression - consulted Dr. Lennon, performed lumbar pelvic fusion with placement of the b/l iliac bolts, open bilateral SI joint fusion, removal of S1 pedicle screw on the right, kyphoplasty L5 vertebral body, placement fuse collagen sponge, with Koros in the bilateral SI joints and the posterior gutters L5-S1. - will order PT/OT: patient will prefer to be discharged home with home health #Low bone density #?osteoporosis vs osteopenia takes vitamin D3 daily, no prescribed bone density medications notes DEXA was done in recent years but at [facility] will see if we can obtain relevant images and notes from them - continue daily vit D supplementation - calcitonin nasal spray as above #HTN has been 140s-160s/60-70s since coming to the ED 04/11, likely elevated due to pain - may continue home lisinopril 10mg qAM - pain control as above should help as well chronic, stable: hypothyroidism- continue levothyroxine anxiety- continue alprazolam 0.5mg BID prn rheumatoid arthritis- may continue MTX 10mg Saturday evening at 2100 iron deficiency- continue ferrous sulfate 325mg qAM VTE ppx: will resume lovenox in AM. Diet: regular; Dispo: med/surg Admission and Anticipated Discharge Date Admission Date: April 11, 2025 Subjective Patient reports having some pain and difficulty amulating today. She was able to go to the bathroom but needs assistance getting back in bed. Asking to be discharged home with home health. Physical Exam Physical Exam: Gen: appearing in no acute distress, in good spirits, A&Ox3 CV: RRR, no m/r/g Resp: clear to auscultation b/l, good symmetric air movement, no w/r/R GI/Abd: +BS, nontender to palpation Neuro: no facial droop, speech intact, no focal deficits; sensation intact through b/l LE Results & Data Results & Data Vital Signs (Past 12 Hours) Vital Signs Temp Pulse Resp BP Pulse Ox O2 Del Method 04/13/25 21:56 36.9 C 81 18 153/73 H 96 Room Air 04/13/25 18:00 36.6 C 74 16 132/78 99 Room Air 04/13/25 14:47 37.1 C 87 18 148/85 H 93 Room Air 04/13/25 12:00 36.6 C 74 18 124/78 98 Room Air PG Care Time/CCT Total # of Minutes Spent Total Time Spent with Patient: Total time spent is greater than 50% in coordination of care (as documented) at patient's floor/unit and/or counseling patient: Coding Level of Care Code 64011 SUB INP/OBS CARE 3/50MIN Diagnoses Closed fracture of sacrum, unspecified portion of sacrum, initial encounter S32.10XA Multilevel lumbosacral spondylosis with radiculopathy M47.27 S/P spinal surgery Z98.890
--- NOTE | 2025-04-14 08:26 | Orthopedic Progress Note ---
Date of Service April 14, 2025 Assessment & Plan (1) Multilevel lumbosacral spondylosis with radiculopathy: Plan: Cindy is postoperative day 2 status post extension of lumbar fusion to the pelvis secondary to sacral fracture. Will continue physical therapy. Continue with pain control. Maintain SIRISHA drain. DVT prophylaxis is in the form teds and SCDs. Will DC Frazier today. Anticipate discharge home within the next day or 2 Admission and Anticipated Discharge Date Admission Date: April 11, 2025 Subjective Cindy is postoperative day 2 status post extension of fusion into the pelvis with iliac bolts secondary to sacral fracture. She has some left leg pain now. No right leg symptoms. She has had a bowel movement. SIRISHA drain output last shift was 30 cc. Yesterday in physical therapy ambulating over 300 feet. Frazier is still intact Review of Systems Review of Systems: All systems reviewed & are unremarkable except as noted in HPI & below Physical Exam Physical Exam: She is sitting on the edge of the bed eating breakfast in no acute distress Alert and oriented x 3 Dressing is clean dry and intact with functioning SIRISHA drain Strength intact bilateral lower extremities Results & Data Vital Signs (Past 12 Hours) Vital Signs Temp Pulse Pulse Resp BP Pulse Ox O2 Del Method 04/14/25 07:59 36.6 C 90 18 163/89 H 94 Room Air 04/14/25 05:00 36.8 C 88 14 155/76 H 96 Room Air 04/14/25 01:37 36.9 C 75 14 163/81 H 95 Room Air 04/13/25 21:56 36.9 C 81 18 153/73 H 96 Room Air Queries Orthopedic Spine Vertebral Fracture Secondary to Osteoporosis: Yes
[2025-04-14 10:05] LABS: Hematocrit (blood only) 33.5 % (37.0-47.0); Hemoglobin 10.9 g/dL (12.0-16.0); Mean Corpuscular Hemoglobin 31.0 pg (25.0-34.0); Mean Corpuscular Volume 95.2 fL (80.0-100.0); Platelet Count 292 K/uL (130-400); RDW Standard Deviation 51.1 fL (36.4-46.3); Red Blood Count 3.52 M/uL (4.20-5.40); White Blood Count 12.92 K/ul (4.8-10.8)
[2025-04-14 10:20] LABS: Anion Gap 9.0 (3-11); Blood Urea Nitrogen 18.0 mg/dl (6-23); Calcium 9.4 mg/dl (8.6-10.3); Carbon Dioxide 30.0 mmol/L (21-32); Chloride 96.0 mmol/L (98-107); Creatinine Clr Calc Pharmacy 46.6 ml/min; Glucose 156.0 mg/dl (70-99(Fasting)); Magnesium 1.3 mg/dl (1.7-2.4); Potassium 3.2 mmol/L (3.5-5.1); Sodium 135.0 mmol/L (136-145)
[2025-04-14] MEDS: POTASSIUM CHLORIDE CRTAB 20 MEQ TABCR PO STA (18:14)
[2025-04-14] MEDS ORDERED: HYDROmorphone INJ 0.5 MG/0.5 ML SYR IV PRN (18:37)
--- NOTE | 2025-04-14 18:38 | Hospitalist Progress Note ---
Date of Service April 14, 2025 Assessment & Plan (1) Sacral fracture: (2) Multilevel lumbosacral spondylosis with radiculopathy: (3) S/P spinal surgery: Plan Cindy is a pleasant 74yo F with PMHx L3-S1 spondylosis w/ radiculopathy s/p decompression and fusion surgery on 01/21/25, ?low bone density (no documented/reported osteoporosis or -penia), rheumatoid arthritis on methotrexate, HTN, hypothyroidism, iron deficiency, and anxiety presenting to the ED for progressing low back pain with no reportable falls or trauma with known S1-S2 fracture as seen on imaging at orthopedic office visit on Monday 04/09, being admitted for pain management and surgical stabilization. #Sacral fractures, S1-S2 Age-related osteoporosis with current pathologic fracture, S1-S2 vertebrae POD #2 (surgery on 04/12/25) - s/p lumbar pelvic fusion with placement of the b/l iliac bolts, open bilateral SI joint fusion, removal of S1 pedicle screw on the right, kyphoplasty L5 vertebral body, placement fuse collagen sponge, with Koros in the bilateral SI joints and the posterior gutters L5-S1 -- by Dr Lennon -doing well from ortho-spine standpoint -minimal numbness in feet but no leg weakness or significant back pain -25OH vit D level wnl -doing well with PT/OT -d/c q6h miralax; change to daily -allow regular diet (tolerating clears) -she prefers Tylenol w/ codeine for pain rather than tramadol -- ordered #Low bone density #?osteoporosis vs osteopenia -takes vitamin D3 daily, no prescribed bone density medications -last DEXA was done in [place] -calcitonin nasal spray as above -will need repeat DEXA #HTN -continue home lisinopril 10mg qAM #hypomagnesemia - -give 3 grams mag sulfate -repeat level am #hypokalemia - -replace PO -repeat BMP am #mild leukocytosis -likely due to IV steroids -no signs/symptoms of any infectious process chronic, stable: hypothyroidism- continue levothyroxine; TSH 01/2025 wnl anxiety- continue alprazolam 0.5mg BID prn rheumatoid arthritis- may continue MTX 10mg Saturday evening at 2100 iron deficiency- continue ferrous sulfate 325mg qAM -hemoglobin stable in the high 10s VTE ppx: lovenox ordered by previous MD home next 1-2 days? family updated at bedside Admission and Anticipated Discharge Date Admission Date: April 11, 2025 Subjective overall doing ok she did state, however, she is having frequent BMs having mild numbness of feet but no weakness of legs did steps today with PT denies any dyspnea denies abd pain denies any N/V Review of Systems Review of Systems: CV - no chest pain pulm - no cough Physical Exam Physical Exam: gen - NAD, sitting at side of bed mouth - MMM neck - no JVD heart - irregular (extra beats?), s1 s2, no murmur lungs - CTA b/l abd - soft NT ND BS+ ext - 1+ edema, pulses 2+ b/l feet neuro - strength 5/5 x 4 exts including all muscle groups of legs Results & Data Results & Data Vital Signs (Past 12 Hours) Vital Signs Temp Pulse Pulse Resp BP Pulse Ox O2 Del Method 04/14/25 14:31 37.1 C 81 18 151/88 H 96 Room Air 04/14/25 11:00 36.4 C L 82 18 134/78 99 Room Air 04/14/25 07:59 36.6 C 90 18 163/89 H 94 Room Air Laboratory Results Laboratory Results - last 48 hr 04/14/25 04/14/25 09:26 11:00 WBC 12.92 H RBC 3.52 L Hgb 10.9 L Hct 33.5 L MCV 95.2 MCH 31.0 MCHC 32.5 RDW Std Deviation 51.1 H RDW Coeff of Neto 14.9 H Plt Count 292 MPV 10.4 Sodium 135 L Potassium 3.2 L D Chloride 96 L Carbon Dioxide 30 Anion Gap 9 BUN 18 Creatinine 1.09 Est Cr Clr Drug Dosing 46.6 eGFR 53.31 BUN/Creatinine Ratio 16.5 Glucose 156 H Calcium 9.4 Magnesium 1.3 L 25-OH Vitamin D Total 63.3 PG Care Time/CCT Total # of Minutes Spent Total Time Spent with Patient: Total time spent is greater than 50% in coordination of care (as documented) at patient's floor/unit and/or counseling patient: Coding Level of Care Code 78338 SUB INP/OBS CARE 3/50MIN Diagnoses Closed fracture of sacrum, unspecified portion of sacrum, initial encounter S32.10XA Multilevel lumbosacral spondylosis with radiculopathy M47.27 S/P spinal surgery Z98.890
[2025-04-14] MEDS: MAGNESIUM SULFATE / D5W 1 GM/100 ML BAG IV SCH (19:09)
[2025-04-14 23:28] VITALS: TEMP 97.9
[2025-04-15 07:47] VITALS: BP 149/77; PULSE 71; RESP 16; O2SAT 97
[2025-04-15 07:50] LABS: Anion Gap 7.0 (3-11); Blood Urea Nitrogen 15.0 mg/dl (6-23); Calcium 9.0 mg/dl (8.6-10.3); Carbon Dioxide 28.0 mmol/L (21-32); Chloride 98.0 mmol/L (98-107); Creatinine Clr Calc Pharmacy 55.2 ml/min; Glucose 111.0 mg/dl (70-99(Fasting)); Magnesium 1.9 mg/dl (1.7-2.4); Potassium 3.6 mmol/L (3.5-5.1); Sodium 133.0 mmol/L (136-145)
--- NOTE | 2025-04-15 08:41 | Discharge Summary ---
Date of Service April 15, 2025 Admission HPI Per Admitting Provider Cindy is a pleasant 74yo F with PMHx L3-S1 spondylosis w/ radiculopathy s/p decompression and fusion surgery on 01/21/25, here for progressing pain in midline lower back. Denies any falls or trauma, but endorses ever since her surgery on 01/21/[address] Lennon, after initial improvement, pt has been having progressing pain in her lower back. Tingling and numbness were originally more in the R leg before the surgery, but since then her L leg has been more affected. States the pain is now typically 8/10 and in midline lower back slightly to the left but does frequently get up to 9-10 pain. She had a scheduled office visit with Dr. Lennon on Saturday04/09/25, at which imaging showed a new S1-S2 fracture. Dr. Lennon said he would operate, but left it to the patient to decide if she wanted to wait and see if the pain got better or worse. As it continued to worsen, pt came to the ER this afternoon for pain control while awaiting surgery for the new fracture. Reportedly Dr. Lennon will be back tomorrow, Saturday04/12/25. Denies any known history of osteoporosis or osteopenia, however reports she had a DEXA in recent years documented at [facility]. Has been taking vitamin D3 daily. Pt denies any anesthesia of the underwear region, nor bowel/bladder incontinence or retention. States she has pain with sitting, but is able to walk short distances with her walker. Denies significant difficulty walking or moving her legs appropriately. ER course: given 15mg Toradol IV, 1000mg tylenol IV Principal Diagnosis Displaced sacral fracture Discharge Data Allergies Allergy/AdvReac Type Severity Reaction Status Date / Time shrimp Allergy Unknown Unverified 04/11/25 14:04 Consultations 04/11/25 13:26 ED Decision to Admit Stat 04/12/25 12:27 Consult Orthopedic Spine Surgery Routine Procedures Performed Operation Date: 04/12/25 07:00 Actual Procedures p Lumbar pelvic fusion with placement of bilateral iliac bolts, open bilateral SI joint fusion, ,placement fuse collagen sponge, with Koros in the bilateral SI joints and the posterior gutters L5-S1(Not Applicable) - Yash Lennon, DO s kyphoplasty L5 vertebral body, (Not Applicable) - Yash Lennon DO s removal of S1 pedicle screw on the right(Not Applicable) - Yash Lennon DO Ordered Studies 04/12/25 [place] pelvis 1-2V Routine 04/12/25 06:04 CT pelvis wo con Stat Hospital Course (1) Sacral fracture: Patient underwent lumbar pelvic fusion. Tolerated well second orthopedic for postoperative. Postop patient progressed very nicely. Pain improved. SIRISHA drain decreasing. Strength intact. Subsidy discharged home. Discharge orders instructions from the chart for further review. Total Time Total Time Spent Total Time Spent (In Minutes): 20 minutes Discharge Plan Discharge Items Patient Disposition: Home - Home Health Services Reason For Visit: SACRAL FRACTURE Discharge Diagnosis: Sacral fracture Condition on Discharge: Fair Activity: As commented below Non-emergency contact: Primary Care Provider Call non-emergency contact if: you have any medication questions Follow-up/Referrals: Vernon Hernandez MD [Primary Care Provider] - Diet: Regular Addtl Attending Provider Instructions: ACTIVITY RECOMMENDATIONS: SELF CARE INSTRUCTIONS AFTER THORACIC/LUMBAR FUSIONS 1. You may walk to your tolerance. It is good exercise for your legs and back. Expect some back and intermittent leg aches and pains. 2. You may perform "counter-top" level activities (make a sandwich, eliel with a project, etc.). 3. No bending or lifting of more than 10 pounds or back twisting of any nature (roll like a log when turning in bed). 4. You may ride in a car for 20-30 minutes at a time. No driving until after your first visit with your doctor. 5. Frequent changes of position and restricting sitting to 30 minutes at a time will help limit the amount of back spasms and stiffness you may experience. 6. You may discontinue the use of ambulatory aids (cane, crutches, etc.) once your strength and confidence allow. 7. You may personal fitness trainer the shower and let water strike your incision when you arrive home at least once daily. Do not take a tub bath, sit in a hot tub or go into a swimming pool until after your first recheck in the office. 8. You may resume previous diet. SPECIAL CARE INSTRUCTIONS: VERY IMPORTANT TO READ AND REVIEW A. Your surgical incision has been closed with a cosmetic suture under the skin that will dissolve in about 6 weeks. In 14 days, you can use a pair of clean scissors and cut the suture that is left outside of the skin at the ends of your incision. 1. The small skin tapes can be removed 7 days after surgery if they have not fallen off by that point. 2. You may keep the wound open to air as much as possible to promote healing after post-op day number 5 unless told otherwise by your doctor. 3. If you think the wound looks like it is becoming infected (redness or worsening drainage) and/or you are experiencing fever, chill or worsening back pain and muscle spasms, contact the office so that we may evaluate you as soon as possible. B. Complications are uncommon, but please contact us if you have any signs or symptoms of: 1. wound infection (fever higher than 102.5 degrees F, redness, separation of wound, drainage, or increasing pain from the incision) 2. blood clots in legs (pain, swelling, redness and warmth in legs) 3. urinary tract infection (fever higher than 102.5 degrees F, burning upon urination or increased frequency of urination) 4. nerve problems (inability to walk on your toes or heels, numbness, loss of bowel or bladder control) 5. any other symptoms that concern you C. Please call the office at if you have any concerns or questions about your operation or recovery. D. No smoking! Smoking drastically decreases the chance of a solid fusion. E. Do not take any anti-inflammatory medications (Indocin, Advil, Motrin, Aspirin, Naprosyn, etc.) as these may inhibit the chance of a solid fusion. Tylenol is okay to take for pain. MANAGING PAIN AFTER SPINAL SURGERY 1. Narcotic medication is intended for short-term use and will be provided for surgical pain. Surgical pain usually lasts for a period of 4-6 weeks. Narcotic medication includes Percocet, Vicodin, Darvocet, Tylenol #3 or Lortab. 2. Longer-term pain is more appropriately treated with non-narcotic medication such as Tylenol ES. 3. Muscle spasm is not appropriately treated with narcotics. Muscle relaxers such as Soma, Flexeril or Skelaxin can be used along with Tylenol ES. 4. Remember that we all live with some "aches and pains". This is not unusual or uncommon after an injury or as we get older. a. Back pain is expected and may include muscle spasms for 4 to 6 weeks after surgery. The pain should gradually improve. If the pain worsens for no apparent reason, please contact the office. b. Intermittent leg pain may also be experienced and should not be concerned about unless it worsens for no apparent reason. If so, please contact the office. 5. We will provide appropriate medication within the normal guidelines of their prescribed use. We will also be very cautious and aware of potential abuse and extended duration of patients' medication needs. a. Pain medications are for your comfort and to assist with sleep and rest so that the tissue can heal. They are not provided in order to return to normal activity and should not be used through the day. To do so or worsening pain at night can result from ongoing tissue damage and development of tolerance to the prescribed medicine. 6. Please allow 2-3 days to process refills. Prescriptions will not be mailed but must be picked up at the office. FOLLOW UP VISIT: Keep your scheduled follow-up appointment. Any questions, please call the office at . Pending Studies at Discharge: No Stand-Alone Forms: [facility], Smoking Cessation Medications and DC Order Prescriptions: New tramadol 50 mg tablet 50 mg PO Q6H PRN (Reason: pain, moderate) Qty: 30 0RF oxycodone 5 mg tablet 5 mg PO Q6H PRN (Reason: pain) Qty: 30 0RF Continued aspirin 81 mg Tablet,Delayed Release (Dr/Ec) 81 mg PO QAM levothyroxine 88 mcg Tablet 88 mcg PO QAM lisinopril 10 mg Tablet 10 mg PO QAM ferrous sulfate 325 mg (65 mg iron) Tablet 325 mg PO QAM folic acid 800 mcg Tablet 0.8 mg PO DAILY cholecalciferol (vitamin D3) [Vitamin D3] 125 mcg (5,000 unit) Tablet 125 mcg PO DAILY omega 2-txu-tow-fish oil 900-1,400 mg Capsule,Delayed Release(Dr/Ec) 1 cap PO UD cyanocobalamin (vitamin B-12) 5,000 mcg Capsule 10,000 mcg PO DAILY acetaminophen-codeine 300-30 mg tablet 1 tab PO Q6H alprazolam 0.5 mg tablet 0.5 mg PO BID PRN (Reason: Anxiety) Discontinued methotrexate sodium 2.5 mg Tablet 10 mg PO WK Patient Comments: sundays at 9pm Rx Instructions: 4 TABS SATURDAY NIGHT ONCE A WEEK Discharge Orders: Discharge Order (Routine); Ordered 04/15/25 Ordered By: Yash Lennon Admission Data Admit Date/Time: 04/11/25 14:22 Attending Provider: Harpreet Jara Admit Provider: Brian Vogel Primary Care Provider: Vernon Hernandez Other Providers: David Montana; Yash Lennon
[2025-04-15] MEDS: POLYETHYLENE (MIRALAX) 17 GM PACK PO SCH (08:53)
[2025-04-15] MEDS: ACETAMINOPHEN W/CODEINE #3 1 TAB PO PRN (10:06)
--- NOTE | 2025-04-15 10:54 | Hospitalist Progress Note ---
Date of Service April 15, 2025 Assessment & Plan (1) Sacral fracture: (2) Multilevel lumbosacral spondylosis with radiculopathy: (3) S/P spinal surgery: Plan 74yo female with L3-S1 spondylosis w/ radiculopathy s/p decompression and fusion surgery on 01/21/25, ?low bone density (no documented/reported osteoporosis), rheumatoid arthritis on methotrexate, HTN, hypothyroidism, iron deficiency, and anxiety presented to the ED for progressive low back pain with no reportable falls or trauma with known S1-S2 fracture as seen on imaging at orthopedic office visit on Monday 04/09. Ad,itted for pain management and surgical stabilization of fractures. #Sacral fractures, S1-S2 - -Age-related osteoporosis with current pathologic fracture, S1-S2 vertebrae -POD #3 (surgery on 04/12/25) - s/p lumbar pelvic fusion with placement of the b/ l iliac bolts, open bilateral SI joint fusion, removal of S1 pedicle screw on the right, kyphoplasty L5 vertebral body, placement fuse collagen sponge, with Koros in the bilateral SI joints and the posterior gutters L5-S1 -- by Dr Lennon -cont to do well from ortho-spine standpoint -minimal numbness in feet but no leg weakness or significant back pain -we discussed that if numbness in feet continues can consider gabapentin -25-OH vit D level wnl at 63 -she prefers Tylenol w/ codeine for pain rather than tramadol -- I stopped tramadol on her d/c med list and prescribed Tylenol w/ codeine #3's -also prescribed some zofran ODTs to use prn at home -discussed bowel agents for constipation #Low bone density - osteoporosis vs osteopenia? - -takes vitamin D3 daily, no prescribed bone density medications -last DEXA was done in [place] by report -25-OH vit D level 63 -will need repeat DEXA as outpatient (made that recommendation in d/c instructions) #HTN - -continue home lisinopril 10mg qAM #hypomagnesemia - -gave 3 grams mag sulfate IV -repeat level today wnl #hypokalemia - -replaced orally and today's level wnl #mild leukocytosis -likely due to IV steroids -no signs/symptoms of any infectious process #hyponatremia - -Na level 133 - stable -hydrated/euvolemic on exam today chronic, stable: hypothyroidism- continue levothyroxine; TSH 01/2025 wnl anxiety- continue alprazolam 0.5mg BID prn rheumatoid arthritis- continue MTX 10mg Saturday evening at 2100 iron deficiency- continue ferrous sulfate 325mg qAM -hemoglobin stable in the high 10s this admission from medical standpoint can d/c home today Admission and Anticipated Discharge Date Admission Date: April 11, 2025 Subjective patient feeling well today ready to go home eating well stools have slowed down we discussed that her EKG showed PACs only - not a.fib back pain controlled no leg pains some paresthesias of feet - unchanged Review of Systems Review of Systems: cv - no chest pain pulm - no dyspnea GI - no abd pain or N/V Physical Exam Physical Exam: gen - NAD, sitting at side of bed, looks well mouth - MMM neck - no JVD heart - irregular (extra beats), s1 s2, no murmur lungs - CTA b/l abd - soft NT ND BS+ ext - trace edema feet b/l, pulses 2+ b/l feet Results & Data Results & Data Vital Signs (Past 12 Hours) Vital Signs Temp Pulse Resp BP BP Pulse Ox O2 Del Method 04/15/25 07:45 36.6 C 71 16 149/77 H 97 Room Air 04/14/25 23:27 36.6 C 79 18 165/78 H 96 Room Air Laboratory Results Laboratory Results - last 24 hr 04/14/25 04/15/25 11:00 06:12 Sodium 133 L Potassium 3.6 Chloride 98 Carbon Dioxide 28 Anion Gap 7 BUN 15 Creatinine 0.92 Est Cr Clr Drug Dosing 55.2 eGFR 65.34 BUN/Creatinine Ratio 16.3 Glucose 111 H Calcium 9.0 Magnesium 1.9 25-OH Vitamin D Total 63.3 PG Care Time/CCT Total # of Minutes Spent Total Time Spent with Patient: Total time spent is greater than 50% in coordination of care (as documented) at patient's floor/unit and/or counseling patient: Coding Level of Care Code 15255 SUB INP/OBS CARE 2/35MIN Diagnoses Closed fracture of sacrum, unspecified portion of sacrum, initial encounter S32.10XA Multilevel lumbosacral spondylosis with radiculopathy M47.27 S/P spinal surgery Z98.890
--- NOTE | 2025-04-15 12:56 | Electrocardiogram Report ---
Test Reason : Blood Pressure : */* mmHG Vent. Rate : 74 BPM Atrial Rate : 74 BPM P-R Int : 176 ms QRS Dur : 96 ms QT Int : 402 ms P-R-T Axes : 63 60 42 degrees QTcB Int : 446 ms Sinus rhythm with Premature atrial complexes Low voltage QRS Borderline ECG When compared with ECG of 08-Jan-2025 13:20, Premature atrial complexes are now Present Confirmed by Deion Lynn ([id number]) on 04/15/2025 12:56:20 PM Referred By: Yash Lennon Confirmed By: Deion Lynn
== END 2025-04-15 14:19 | disposition home health service (06) | DRG 448 ==
LOC: ED 11:14 → INTOOBSV 14:22 → SUATTDRO 14:22 → 3W 15:24